=== PATIENT | male | born 1950 | race Caucasian/White ===

== ENCOUNTER → 2017-05-15 | Outpatient (CLI) | payer MEDICARE, BC ==
--- NOTE | 2017-05-15 15:56 | US ---
EXAMINATION TYPE: US kidneys/renal and bladder DATE OF EXAM: 05/15/2017 COMPARISON: NONE CLINICAL HISTORY: 66-year-old male CKD Stage III N183. Abnormal labs, no symptoms TECHNIQUE: Multiple sonographic images of the kidneys and bladder were obtained. FINDINGS: Right Kidney: 12.5 x 5.7 x 6.3 cm without hydronephrosis. There is a large, lobulated 8.4 cm cyst at the lower pole. Left Kidney: 11.3 x 5.1 x 7.2 cm with mild pelvicaliectasis. There is a 1.6 cm echogenic focus at the lower pole. Along the right anterior bladder wall, there is a 1.9 cm round hypoechoic area. The rubber tubing splicer indic ates that during real-time scanning, this was felt to relate to adjacent bowel and technical artifact . Only the right ureteral jet is seen during the course of the exam. Incidentally, there is echogenic appearance to the liver suggesting fatty infiltration. IMPRESSION: 1. Mild pelvicaliectasis on the left. The left ureteral jet is also not seen. Correlate for any sympt oms of renal colic to exclude ureteral obstruction. Follow-up can be considered. 2. Large 8.4 cm lobulated cyst from the right lower pole. 3. A 1.6 cm nonobstructive calculus in the left lower pole. 4. A 1.9 cm round hypoechoic area along the right anterior bladder wall felt to relate to artifact or adjacent bowel during real-time scanning. Recommend three-month follow-up ultrasound to reassess thi s area.
== END ==
LOC: RADUSWWP 13:35
PROVIDERS: ATTEND Family Medicine
DX: N20.0 Calculus of kidney (principal); N28.1 Cyst of kidney, acquired
CPT/HCPCS: 76770

== ENCOUNTER → 2017-06-06 | Outpatient (CLI) | payer MEDICARE, BC ==
--- NOTE | 2017-06-06 16:16 | XR ---
EXAMINATION TYPE: XR KUB DATE OF EXAM: 06/06/2017 CLINICAL DATA: 66-year-old male with pain, evaluate for stones, [facility] COMPARISON: None FINDINGS: Nonobstructive bowel gas pattern. Moderate stool. No suspicious calcifications seen. Prior plate and screw fixation along the right iliac bone with postsurgical and/or posttraumatic deformity anterior i liac wing. IMPRESSION: No radiographically apparent suspicious calcifications. Moderate stool.
== END | disposition home or self-care (01) ==
LOC: RADXRMAIN 15:15
PROVIDERS: ATTEND Urology
DX: N20.0 Calculus of kidney (principal)
CPT/HCPCS: 74000

== ENCOUNTER → 2017-08-02 | Outpatient (CLI) | payer MEDICARE, BC ==
[2017-08-02 09:23] LABS: Basophils % (A) 1 %; Eosinophils # (A) 0.2 k/uL (0-0.7); Eosinophils % (A) 3 %; HCT 42.2 % (39.0-53.0); HGB 14.1 gm/dL (13.0-17.5); Lymphocytes # (A) 1.2 k/uL (1.0-4.8); Lymphocytes % (A) 20 %; MCH 30.5 pg (25.0-35.0); MCHC 33.4 g/dL (31.0-37.0); MCV 91.4 fL (80.0-100.0); Mean Platelet Volume 6.8; Monocytes # (A) 0.3 k/uL (0-1.0); Monocytes % (A) 5 %; Neutrophils # (A) 4.1 k/uL (1.3-7.7); Neutrophils % (A) 70 %; Platelet Count 200 k/uL (150-450); RBC 4.61 m/uL (4.30-5.90); RDW 12.4 % (11.5-15.5); WBC 5.9 k/uL (3.8-10.6)
[2017-08-02 09:31] LABS: Appearance,Urine Clear (Clear); Bilirubin,Urine Negative (Negative); Blood,Urine Negative (Negative); Color,Urine Yellow; Glucose,Urine (UA) 1+ (Negative); Ketones,Urine Negative (Negative); Leukocyte Esterase,Urine Negative (Negative); Nitrite,Urine Negative (Negative); PH, Urine 5.5 (5.0-8.0); Protein,Urine Trace (Negative); Specific Gravity,Urine 1.015 (1.001-1.035); Urobilinogen,Urine <2.0 mg/dL (<2.0)
[2017-08-02 09:58] LABS: Albumin 4.3 g/dL (3.5-5.0); Total Bilirubin 0.4 mg/dL (0.2-1.3); Total Protein 7.5 g/dL (6.3-8.2)
== END | disposition home or self-care (01) ==
LOC: LABPAT 08:27
PROVIDERS: ATTEND Urology
DX: Z01.818 Encounter for other preprocedural examination (principal); Z01.812 Encounter for preprocedural laboratory examination; I10 Essential (primary) hypertension; N20.0 Calculus of kidney; R35.0 Frequency of micturition; R31.9 Hematuria, unspecified; E78.5 Hyperlipidemia, unspecified
CPT/HCPCS: 80053; 81003; 85025; 86850; 86900; 86901; 93005

== ENCOUNTER 2017-08-09 06:07 | Inpatient (IN) | payer MEDICARE, BC ==
[2017-08-02 23:00] VITALS: BMI 34.8
[~2017-08-09 06:07] MED LIST: ceFAZolin IN SWFI 2 GM/20 ML SYRINGE IVP ONE
[2017-08-09] MEDS ORDERED: ONDANSETRON 4 MG/2 ML VIAL IVP ONE (06:09)
[2017-08-09] MEDS ORDERED: DEXAMETHASONE SOD PHOSPHATE 10 MG/ML 1 ML VIAL IV ONE (06:09)
[2017-08-09] MEDS ORDERED: HYDROmorphone 0.5 MG/0.5 ML SYRINGE IVP PRN (06:09)
[2017-08-09] MEDS ORDERED: LACTATED RINGERS 1,000 ML IV SCH (06:09)
[2017-08-09 06:43] VITALS: RESP 16
[2017-08-09] MEDS ORDERED: LIDOCAINE 1% 20 ML VIAL (10MG/ML) FOR IV START INTRADERMA ONE (06:50)
[2017-08-09 07:02] LABS: Glucose,Whole Blood 124 mg/dL (75-99)
[2017-08-09] MEDS ORDERED: LIDOCAINE 1% INJ 10MG/ML (20 ML MDV) ONE (07:26)
[2017-08-09] MEDS ORDERED: ROCURONIUM BROMIDE 10 MG/ML 10 ML VIAL IV ONE (07:26)
[2017-08-09] MEDS ORDERED: HYDROmorphone (PF) 1 MG/ML ONE (07:26)
[2017-08-09] MEDS ORDERED: PROPOFOL 10 MG/ML 20 ML VIAL IV ONE (07:26)
[2017-08-09] MEDS ORDERED: MIDAZOLAM 2 MG/2 ML VIAL ONE (07:26)
[2017-08-09] MEDS ORDERED: NEOSTIGMINE 1 MG/ML 10 ML VIAL ONE (07:26)
[2017-08-09] MEDS ORDERED: GLYCOPYRROLATE 0.2 MG/ML 2 ML VIAL ONE (07:26)
[2017-08-09] MEDS ORDERED: SUCCINYLCHOLINE CHLORIDE VIAL 200 MG/10 ML VIAL IV ONE (07:26)
--- NOTE | 2017-08-09 07:32 | XR ---
EXAMINATION TYPE: XR KUB DATE OF EXAM: 08/09/2017 HISTORY: Pain Comparison: 06/06/[address] 07/03/2017 Single KUB is submitted for interpretation. Findings: Right renal calculi: None Visualized. Right ureteral calculi: None Visualized. Left renal calculi: Recently described left renal calculi on recent CT are not clearly visualized on this examination. Left ureteral calculi: None Visualized. Pelvic calcifications: None Visualized. Bowel gas pattern is unremarkable. No free air. No mass effects. Postoperative changes right hemipe lvis. IMPRESSION: 1. Recently described left renal calculi on recent CT are not clearly visualized on this examination.
[2017-08-09] MEDS ORDERED: SODIUM CHLORIDE 0.9% 1,000 ML BAG IRRIGATION ONE (08:09)
[2017-08-09] MEDS ORDERED: IOHEXOL 350 MG/ML (PER ML) 100ML BTL MISCELLANE ONE (08:09)
[2017-08-09] MEDS ORDERED: LACTATED RINGERS 1,000 ML IV ONE ×2 (08:32)
[2017-08-09] MEDS ORDERED: ACETAMINOPHEN TAB 325 MG TAB PO PRN (08:52)
[2017-08-09] MEDS ORDERED: ONDANSETRON 4 MG/2 ML VIAL IVP PRN (08:52)
[2017-08-09] MEDS ORDERED: MAG HYDROX/AL HYDROX/SIMETH 30 ML CUP PO PRN (08:52)
--- NOTE | 2017-08-09 09:02 | P.OP ---
Date of Procedure: 08/09/17 Preoperative Diagnosis: Left renal calculi Postoperative Diagnosis: Left renal calculi Procedure(s) Performed: Cystoscopy, placement of left ureteral occluding balloon catheter, percutaneous nephrostomy (Dr. Farris) percutaneous nephrostolithotomy (Dr. Carranza), placement of 10-Austrian J nephrostomy Anesthesia: SIM Surgeon: Mikey Carranza Estimated Blood Loss (ml): 50 Pathology: other (Stone) Condition: stable Disposition: PACU Indications for Procedure: The patient is a 66-year-old gentleman with a 1.5 cm UPJ stone and multiple 5-6 mm stones in the left lower pole calyx he comes for percutaneous nephrostolithotomy Description of Procedure: Patient is brought to the operating suite he is given a successful general endotracheal anesthesia on the transport gurney. The patient is placed in a frog position with a sterile prep and drape. Cystoscopy with a 22-Austrian sheath and Foroblique lenses performed. The urethra is normal. The prostate is not obstructing. The left ureteral orifice is identified and intubated with a 5-Austrian occluding balloon catheter. Occluding balloon is passed up into the proximal ureter. In the balloon is insufflated The patient's placed in prone position with care to airways and extremities. Dr. Farris of radiology after sterile prep and drape performed percutaneous access to a left middle pole calyx. I then dilate the tract to 30-Austrian and place a working sheath into the collecting system. All amount of blood clot is irrigated out of the system. Large stone in the renal pelvises identify grasp and removed. Multiple small fragments at the UPJ are also removed. I am able to look in the left lower pole calyx with the rigid scope and remove several small stones. I then pass the flexible nephroscope into each calyceal system. I irrigate any stones back into the renal pelvis. I once again pass the rigid scope and remove the remaining fragments. I look again throughout the collecting system with the flexible scope and see no remaining stones. A 10- Austrian J nephrostomy tube was placed over the working wire and its position is confirmed fluoroscopically. It is secured to the skin with 2-0 silk. The patient is awakened and returned recovery room good condition. Blood loss is less than 50 mL. He'll be placed in the hospital postoperatively.
[2017-08-09] MEDS ORDERED: NALOXONE 0.4 MG/ML 1 ML VIAL IV PRN (09:03)
[2017-08-09] MEDS ORDERED: HYDROmorphone PCA 5 MG/25 ML SYRINGE IV PRN (09:03)
[2017-08-09 09:26] LABS: Glucose,Whole Blood 141 mg/dL (75-99)
--- NOTE | 2017-08-09 09:43 | FL ---
EXAMINATION TYPE: FL Perc Nephrostomy New Access DATE OF EXAM: 08/09/2017 COMPARISON: CT 07/03/2017 HISTORY: Hydronephrosis, left renal calculus. PROCEDURE: Maximal barrier technique was utilized. The skin overlying the left kidney was localized using fluor oscopy and the overlying skin prepped and draped. Lidocaine used for local anesthesia. Skin roque wa s made with a scalpel. Access was gained under fluoroscopy, following placement of a ureteral occlus ion balloon by the referring clinician and instillation of air in the renal collecting system with a 21-gauge needle to the kidney. A suitable posterior calyx was chosen. A 0.018 inch wire was advanc ed. The access site was dilated and subsequently a sheath was advanced into the renal pelvis followi ng dilation with balloon along the tract. Urine returned in the hub of the catheter. The patient unde rwent nephrolithotomy by the referring clinician. The patient remained in stable condition without complication. The patient was discharged to observation. IMPRESSION: STATUS POST NEPHROSTOMY PLACEMENT FOR NEPHROLITHOTOMY WITH FLUOROSCOPIC GUIDANCE. THIS PROCEDURE PER FORMED BY THE UNDERSIGNED.
[2017-08-09] MEDS: LOSARTAN-HCTZ 50-12.5 MG 1 EACH TAB PO SCH (10:02)
[2017-08-09] MEDS: SODIUM CHLORIDE 0.45% 1,000 ML IV SCH (10:10)
[2017-08-09 11:21] LABS: Glucose,Whole Blood 157 mg/dL (75-99)
[2017-08-09] MEDS ORDERED: HYDROcodone/APAP 7.5-325MG 1 EACH TAB PO PRN (13:35)
[2017-08-09] MEDS: metFORMIN 500 MG TAB PO SCH (14:42)
[2017-08-09] MEDS: CEPHALEXIN 500 MG CAP PO SCH ×2 (14:43→21:50)
[2017-08-09 16:45] LABS: Glucose,Whole Blood 152 mg/dL (75-99)
[2017-08-09] MEDS ORDERED: metFORMIN 500 MG TAB PO SCH (17:30)
[2017-08-09] MEDS: INSULIN ASPART 100 UNIT/ML 1 ML 10 ML VIAL SQ SCH ×2 (18:01→21:49)
[2017-08-09 20:11] LABS: Glucose,Whole Blood 186 mg/dL (75-99)
[2017-08-09] MEDS ORDERED: TAMSULOSIN 0.4 MG CAP.ER.24H PO SCH (21:00)
[2017-08-10 02:30] VITALS: BP 95/47; PULSE 80; TEMP 98.3
[2017-08-10] MEDS: SODIUM CHLORIDE 0.45% 1,000 ML IV SCH ×2 (04:39→09:48)
--- NOTE | 2017-08-10 06:39 | P.DS ---
Providers Date of admission: 08/09/17 06:07 Attending physician: Mikey Carranza Primary care physician: [place] [facility] Course: The patient is a 66-year-old gentleman with a large volume of left renal stones. He underwent a percutaneous nephrostolithotomy 08/09/2016. The stones removed successfully. He did well overnight. His pain is minimal. His catheter is removed. He tolerated fluids. The voided urine is clear and nephrostomy urine is pink up. He'll be discharged home today care of his family regular diet. He resume his medications. He's been given a prescription of Phillips. He'll follow-up in the office next week for nephrostomy tube removal. Patient Condition at Discharge: Good Plan - Discharge Summary Discharge Rx Participant: Yes New Discharge Prescriptions: New HYDROcodone/APAP 5-325MG [Phillips 5-325] 1 tab PO Q4HR PRN #20 tab PRN Reason: Pain Control No Action metFORMIN HCL [Glucophage] 500 mg PO QAM metFORMIN HCL 1,000 mg PO AC-SUPPER Losartan/Hydrochlorothiazide [Losartan-Hctz 100-25 mg Tab] 1 tab PO QAM Tamsulosin [Flomax] 0.4 mg PO HS Naproxen Sodium [Aleve] 220 mg PO BID Discharge Medication List metFORMIN HCL 1,000 mg PO AC-SUPPER 03/20/15 [History] metFORMIN HCL [Glucophage] 500 mg PO QAM 03/20/15 [History] Losartan/Hydrochlorothiazide [Losartan-Hctz 100-25 mg Tab] 1 tab PO QAM [History] Naproxen Sodium [Aleve] 220 mg PO BID 08/01/17 [History] Tamsulosin [Flomax] 0.4 mg PO HS 08/01/17 [History] HYDROcodone/APAP 5-325MG [Phillips 5-325] 1 tab PO Q4HR PRN #20 tab 08/10/17 [Rx] Follow up Appointment(s)/Referral(s): Mikey Carranza MD [STAFF PHYSICIAN] - 08/14/17 Activity/Diet/Wound Care/Special Instructions: Nephrostomy tube. Resume home medication. May shower if he covers dressing with plastic wrap or changes dressing. Discharge Disposition: HOME SELF-CARE
[2017-08-10 07:29] LABS: Glucose,Whole Blood 130 mg/dL (75-99)
[2017-08-10] MEDS: CEPHALEXIN 500 MG CAP PO SCH (08:10)
[2017-08-10] MEDS: LOSARTAN-HCTZ 50-12.5 MG 1 EACH TAB PO SCH (08:10)
[2017-08-10] MEDS: INSULIN ASPART 100 UNIT/ML 1 ML 10 ML VIAL SQ SCH (08:10)
[2017-08-10] MEDS: metFORMIN 500 MG TAB PO SCH (08:11)
[2017-08-10 15:57] LABS: Hemoglobin A1C 6.2 % (4.0-6.0)
== END 2017-08-10 11:08 | disposition home or self-care (01) | DRG 661 ==
LOC: 2ORMAIN 06:07 → 3SUR 08:47
PROVIDERS: ADMIT Urology; ATTEND Urology
PROC: 0T9130Z Drainage of Left Kidney with Drainage Device, Percutaneous Approach (ICD-10-PCS; 2017-08-09)
PROC: 0TC43ZZ Extirpation of Matter from Left Kidney Pelvis, Percutaneous Approach (ICD-10-PCS; principal; 2017-08-09 07:30)
PROC: 0T778DZ Dilation of Left Ureter with Intraluminal Device, Via Natural or Artificial Opening Endoscopic (ICD-10-PCS; principal; 2017-08-09 07:30)
DX: N20.2 Calculus of kidney with calculus of ureter (principal); E11.22 Type 2 diabetes mellitus with diabetic chronic kidney disease; N18.3 Chronic kidney disease, stage 3 (moderate); E78.5 Hyperlipidemia, unspecified; Z79.84 Long term (current) use of oral hypoglycemic drugs; Z79.899 Other long term (current) drug therapy; I12.9 Hypertensive chronic kidney disease with stage 1 through stage 4 chronic kidney disease, or unspecified chronic kidney disease; E55.9 Vitamin D deficiency, unspecified; N40.0 Benign prostatic hyperplasia without lower urinary tract symptoms
CPT/HCPCS: 50432; 74018; 82365; 83036; 84132; 86850; 86900; 86901

== ENCOUNTER → 2018-03-13 | Outpatient (CLI) | payer MEDICARE, BC ==
--- NOTE | 2018-03-13 10:11 | XR ---
EXAMINATION TYPE: XR KUB DATE OF EXAM: 03/13/2018 HISTORY: Pain Comparison: 08/09/2017 Single KUB is submitted for interpretation. Findings: Right renal calculi: None Visualized. Right ureteral calculi: None Visualized. Left renal calculi: None Visualized. Left ureteral calculi: None Visualized. Pelvic calcifications: None Visualized. Bowel gas pattern is unremarkable. No free air. No mass effects. IMPRESSION: 1. No distinct calculus identified at this time.
== END | disposition home or self-care (01) ==
LOC: RADXRMAIN 09:26
PROVIDERS: ATTEND Urology
DX: N20.0 Calculus of kidney (principal)
CPT/HCPCS: 74018

== ENCOUNTER → 2019-03-06 | Outpatient (CLI) | payer MEDICARE, BC ==
--- NOTE | 2019-03-06 15:44 | XR ---
EXAMINATION TYPE: XR knee complete RT DATE OF EXAM: 03/06/2019 CLINICAL HISTORY: Intermittent increasing right knee pain. TECHNIQUE: Three views of the right knee are obtained. COMPARISON: None. FINDINGS: There is no acute fracture/dislocation evident in right knee. The tri-compartment joint s paces appear aligned however small marginal osteophytes are seen in the lateral compartment and walton lofemoral compartment with mild patellofemoral compartment joint space narrowing. Tibial plateau scle rosis is seen of the medial and lateral compartments. Small suprapatellar joint effusion is incidenta lly seen. The overlying soft tissue appears unremarkable. IMPRESSION: 1. No acute fracture or dislocation in the right knee. 2. Mild tricompartmental arthropathy and mild suprapatellar joint effusion.
== END | disposition home or self-care (01) ==
LOC: RADXRYALE 11:32
PROVIDERS: ATTEND Physician Assistant Medical
DX: M17.11 Unilateral primary osteoarthritis, right knee (principal)

== ENCOUNTER → 2019-04-24 | Outpatient (CLI) | payer MEDICARE, BC ==
[2019-04-24 11:25] LABS: Potassium 4.6 mmol/L (3.5-5.1)
[2019-04-24 11:41] LABS: HGB 13.8 gm/dL (13.0-17.5); MCH 30.2 pg (25.0-35.0); MCHC 33.6 g/dL (31.0-37.0); MCV 90.1 fL (80.0-100.0); Mean Platelet Volume 7.4; Platelet Count 230 k/uL (150-450); RBC 4.55 m/uL (4.30-5.90); RDW 13.4 % (11.5-15.5); WBC 8.2 k/uL (3.8-10.6)
== END | disposition home or self-care (01) ==
LOC: LABPAT 10:08
PROVIDERS: ATTEND Internal Medicine Interventional Cardiology
DX: Z01.812 Encounter for preprocedural laboratory examination (principal); I42.8 Other cardiomyopathies
CPT/HCPCS: 80051; 82565; 84520; 85027

== ENCOUNTER 2019-05-01 09:42 | Day surgery (SDC) | payer MEDICARE, BC ==
[2019-04-29 14:07] VITALS: BMI 32.9
[~2019-05-01 09:42] MED LIST changes: +ALPRAZolam 0.25 MG TAB PO PRN; +ALPRAZolam 0.5 MG TAB PO PRN; +ASPIRIN 325 MG TAB PO STA; +ATORVASTATIN 80 MG TAB PO STA; +NITROGLYCERIN SL TABS 0.4 MG TAB SUBLINGUAL PRN; -ceFAZolin IN SWFI 2 GM/20 ML SYRINGE IVP ONE
[2019-05-01] MEDS ORDERED: SODIUM CHLORIDE 0.9% 1,000 ML in EMPTY BAG 1 BAG IV ONE (10:00)
[2019-05-01 10:17] VITALS: RESP 16; TEMP 97.7
[2019-05-01 10:25] LABS: Glucose,Whole Blood 112 mg/dL (75-99)
[2019-05-01] MEDS ORDERED: SODIUM CHLORIDE 0.9% 1,000 ML IV ONE (12:30)
[2019-05-01] MEDS ORDERED: fentaNYL (PF) 50 MCG/ML 2 ML AMP IV ONE (12:51)
[2019-05-01] MEDS ORDERED: LIDOCAINE 1% INJ 10MG/ML (20 ML MDV) SQ ONE (12:53)
[2019-05-01] MEDS ORDERED: VERAPAMIL SYRINGE (5 MG/10 ML) INTRAARTER ONE (12:56)
[2019-05-01] MEDS ORDERED: HEPARIN SODIUM 1,000 UN/ML (10ML VL) IV ONE (13:04)
[2019-05-01] MEDS ORDERED: IOPAMIDOL-370 125ML BTL INJ ONE (13:08)
[2019-05-01] MEDS ORDERED: RX INFO: IV CONTRAST WAS GIVEN 1 EACH MISC MISCELLANE PRN (13:28)
[2019-05-01] MEDS ORDERED: SODIUM CHLORIDE 0.9% 1,000 ML IV SCH (13:30)
[2019-05-01 16:55] VITALS: BP 101/72
[2019-05-01 18:14] VITALS: PULSE 72
--- NOTE | 2019-05-01 20:56 | CC ---
CARDIAC CATHETERIZATION REPORT Mr. Vasquez is a 68-year-old male who is followed by Dr. Bañuelos. He was found to have evidence of cardiomyopathy of unclear etiology. The patient has a history of diabetes, hyperlipidemia and hypertension. Because of his history and his presentation, recommendation was made regarding cardiac catheterization. The procedure, its risks and complications were discussed with the patient, who was in full understanding and agreement. PROCEDURE DESCRIPTION: Patient was brought to the curb and gutter laborer in a fasting, semi-sedated state after receiving fentanyl and Benadryl and achieving a moderate conscious sedated state. Using Xylocaine anesthesia and Seldinger technique, a 6-Bruneian sheath was introduced in the right radial artery. Selective right and left coronary angiography was performed using 5-Bruneian 3-1/2 bend right and left Dustin catheters. Multiple views were taken of the coronary arteries, including hemiaxial views. Following that, a 5-Bruneian tight pigtail catheter was introduced into the left ventricle and pressures were calculated. Following that, catheter and sheaths were removed. Hemostasis was obtained with deployment of a TR band. There was no immediate complication. Patient was returned to his room in stable condition. Of note, the patient received 5000 units of intravenous heparin as well as intra-arterial verapamil. There was no immediate complication. FINDINGS: FLUOROSCOPY: There is calcification involving all the coronary arteries. LEFT MAIN: This is a short-sized vessel bifurcating into left circumflex and left anterior descending artery. Left main coronary artery has no evidence of high-grade stenosis. LEFT ANTERIOR DESCENDING ARTERY: This is a large-sized vessel reaching toward the apex with a wrap around the apex segment giving rise to a large proximal diagonal branch. After the takeoff of the diagonal branch there is a 20% to 30% plaque without any evidence of high-grade stenosis. LEFT CIRCUMFLEX: This is a nondominant, moderate-sized vessel giving rise to 2 obtuse marginal branches. The takeoff of the left circumflex has 30% to 40% plaque. The rest of the vessel has no high-grade stenosis. RIGHT CORONARY ARTERY: This is a large dominant vessel bifurcating distally into PDA and posterolateral segment and branches. The right coronary artery is tortuous and in the mid segment has a 30% to 40% plaque. The rest of the vessel has no high-grade stenosis. LEFT VENTRICULOGRAM: Left ventriculogram was not performed. HEMODYNAMICS: There was no gradient across the aortic valve. The left ventricular end- diastolic pressure was 32 to 36 mmHg. CONCLUSION: 1. Mild triple-vessel coronary artery disease with calcified coronary arteries. 2. Elevated left ventricular end-diastolic pressure. RECOMMENDATIONS: At this time I see no evidence to suggest significant obstructive disease. His cardiomyopathy appears to be nonischemic cardiomyopathy. Will continue present therapy and, depending on his progress, further recommendations will be made. Those findings and recommendations were discussed with the patient, and he is in full understanding and agreement. DURATION OF PROCEDURE: 19 minutes. MMODL / IJN: [id number] /
[2019-05-01] MEDS ORDERED: CARVEDILOL 3.125 MG TAB PO SCH (21:00)
[2019-05-01] MEDS ORDERED: NON FORMULARY DRUG (Losartan/Hydrochlorothiazide [Losartan-Hctz 100-25 Mg Tab] 1 TAB) PO SCH (21:00)
[2019-05-02] MEDS ORDERED: ALLOPURINOL 100 MG TAB PO SCH (09:00)
[2019-05-02] MEDS ORDERED: ATORVASTATIN 40 MG TAB PO SCH (09:00)
[2019-05-02] MEDS ORDERED: ASPIRIN 81 MG PO SCH (09:00)
== END 2019-05-01 17:45 | disposition home or self-care (01) ==
LOC: CATHCVL 09:42
PROVIDERS: ATTEND Internal Medicine Interventional Cardiology
DX: I25.10 Atherosclerotic heart disease of native coronary artery without angina pectoris (principal); I77.1 Stricture of artery; I12.9 Hypertensive chronic kidney disease with stage 1 through stage 4 chronic kidney disease, or unspecified chronic kidney disease; E11.22 Type 2 diabetes mellitus with diabetic chronic kidney disease; N18.9 Chronic kidney disease, unspecified; Z79.84 Long term (current) use of oral hypoglycemic drugs; E78.5 Hyperlipidemia, unspecified; E78.00 Pure hypercholesterolemia, unspecified; I47.2 Ventricular tachycardia; I47.1 Supraventricular tachycardia; Z87.442 Personal history of urinary calculi; Z79.899 Other long term (current) drug therapy
CPT/HCPCS: 93458; J2001; J3010; J1644; Q9967

== ENCOUNTER → 2019-09-24 | Outpatient (CLI) | payer MEDICARE, BC ==
--- NOTE | 2019-09-24 14:32 | XR ---
EXAMINATION TYPE: XR chest 2V DATE OF EXAM: 09/24/2019 COMPARISON: 07/12/2011 HISTORY: Increasing shortness of breath for one month TECHNIQUE: Frontal and lateral views of the chest are obtained. FINDINGS: There is no focal air space opacity, pleural effusion, or pneumothorax seen. Linear left basilar retrocardiac atelectasis on the lateral view only. The cardiac silhouette size is enlarged. The osseous structures are intact. IMPRESSION: Linear left basilar subsegmental atelectasis and enlarged cardiomediastinal silhouette.
== END | disposition home or self-care (01) ==
LOC: RADXRYALE 14:02
PROVIDERS: ATTEND Physician Assistant Medical
DX: J98.11 Atelectasis (principal); J98.59 Other diseases of mediastinum, not elsewhere classified
CPT/HCPCS: 71046

== ENCOUNTER → 2019-10-09 | Outpatient (CLI) | payer MEDICARE, BC ==
--- NOTE | 2019-10-09 10:54 | XR ---
EXAMINATION TYPE: XR chest 2V DATE OF EXAM: 10/09/2019 COMPARISON: 09/24/2019 HISTORY: Cough and shortness of breath TECHNIQUE: Frontal and lateral views of the chest are obtained. FINDINGS: There is no focal air space opacity, pleural effusion, or pneumothorax seen. Subtle questi onable nodular density at the right costophrenic angle on the frontal view only. The cardiac silhouet te size is enlarged. The osseous structures are intact. IMPRESSION: 1. Enlarged cardiomediastinal silhouette as seen on the prior. 2. Questionable nodular density at the right costophrenic angle. CT thorax could be performed for fur ther evaluation.
== END | disposition home or self-care (01) ==
LOC: RADXRYALE 10:00
PROVIDERS: ATTEND Physician Assistant Medical
DX: R06.02 Shortness of breath (principal)
CPT/HCPCS: 71046

== ENCOUNTER 2019-11-21 07:53 | Day surgery (SDC) | payer MEDICARE, BC ==
[2019-11-20 14:21] VITALS: BMI 32.8
[~2019-11-21 07:53] MED LIST changes: -ALPRAZolam 0.25 MG TAB PO PRN; -ALPRAZolam 0.5 MG TAB PO PRN; -ASPIRIN 325 MG TAB PO STA; -ATORVASTATIN 80 MG TAB PO STA; +LACTATED RINGERS 1,000 ML IV SCH; -NITROGLYCERIN SL TABS 0.4 MG TAB SUBLINGUAL PRN; +SODIUM CHLORIDE 0.9% 1,000 ML IV SCH; +ceFAZolin 1,000 MG in SODIUM CHLORIDE 0.9% IRRIGATIO 250 ML IRRIGATION ONE
[2019-11-21 08:27] LABS: Glucose,Whole Blood 115 mg/dL (75-99)
[2019-11-21 08:36] LABS: Basophils # (A) 0.1 k/uL (0-0.2); Basophils % (A) 1 %; Eosinophils # (A) 0.2 k/uL (0-0.7); Eosinophils % (A) 3 %; HCT 42.3 % (39.0-53.0); HGB 13.7 gm/dL (13.0-17.5); Lymphocytes # (A) 0.9 k/uL (1.0-4.8); Lymphocytes % (A) 13 %; MCHC 32.3 g/dL (31.0-37.0); MCV 89.9 fL (80.0-100.0); Mean Platelet Volume 8.4; Monocytes # (A) 0.5 k/uL (0-1.0); Monocytes % (A) 7 %; Neutrophils # (A) 5.2 k/uL (1.3-7.7); Neutrophils % (A) 77 %; Platelet Count 194 k/uL (150-450); RBC 4.71 m/uL (4.30-5.90); RDW 13.8 % (11.5-15.5); WBC 6.8 k/uL (3.8-10.6)
[2019-11-21 08:42] VITALS: RESP 16; TEMP 97.5
[2019-11-21 08:45] LABS: Calcium 9.4 mg/dL (8.4-10.2); Total Bilirubin 1.2 mg/dL (0.2-1.3)
[2019-11-21 08:53] LABS: Albumin 4.4 g/dL (3.5-5.0); Potassium 5.9 mmol/L (3.5-5.1); Total Protein 7.9 g/dL (6.3-8.2)
[2019-11-21] MEDS ORDERED: MIDAZOLAM 2 MG/2 ML VIAL ONE (09:13)
[2019-11-21] MEDS ORDERED: ALFENTANIL 500 MCG/ML 2 ML AMP IV ONE (09:13)
[2019-11-21] MEDS ORDERED: IV FLUID CONTINUATION 900 ML IV ONE (09:15)
[2019-11-21] MEDS ORDERED: LIDOCAINE 1% INJ 10MG/ML (20 ML MDV) ONE ×2 (09:38)
[2019-11-21] MEDS ORDERED: LIDOCAINE 1% INJ 10MG/ML (20 ML MDV) SQ ONE ×2 (09:56→10:08)
[2019-11-21] MEDS ORDERED: ACETAMINOPHEN TAB 325 MG TAB PO PRN (10:57)
[2019-11-21] MEDS ORDERED: ACETAMINOPHEN IV (For NPO) 1,000 MG in EMPTY BAG 1 BAG IVPB ONE (10:57)
[2019-11-21 11:17] LABS: Glucose,Whole Blood 134 mg/dL (75-99)
--- NOTE | 2019-11-21 11:48 | P.DS ---
Providers Attending physician: Brant Bañuelos Primary care physician: [facility] Course: Patient underwent single-chamber ICD implantation for severe nonischemic cardiomyopathy with severe heart failure, chronic and systolic despite appropriate medical treatment. He is frequent fast runs of nonsustained ventricular tachycardia. He's had 100 runs of nonsustained ventricular tachycardia in a 24-hour Holter monitor recently. He also isn't enlarged RV Single chamber ICD was implanted [employer] successfully DFT testing was deferred at this point Plan continue cardiac medications continue heart failure medications Prescribed IVABRADINE for heart failure management Discharge home after IV antibodies and chest x-ray today follow-up in the office within 7 days Plan - Discharge Summary Discharge Rx Participant: No New Discharge Prescriptions: Continue metFORMIN HCL [Glucophage] 500 mg PO QAM Carvedilol [Coreg] 3.125 mg PO BID Atorvastatin [Lipitor] 40 mg PO HS Allopurinol [Zyloprim] 100 mg PO DAILY PRN PRN Reason: gout metFORMIN HCL [Glucophage] 1,000 mg PO HS Losartan [Cozaar] 50 mg PO DAILY Furosemide [Lasix] 20 mg PO DAILY@1200 Spironolactone 12.5 mg PO BID Discharge Medication List metFORMIN HCL [Glucophage] 500 mg PO QAM 03/20/15 [History] Allopurinol [Zyloprim] 100 mg PO DAILY PRN 04/29/19 [History] Atorvastatin [Lipitor] 40 mg PO HS 04/29/19 [History] Carvedilol [Coreg] 3.125 mg PO BID 04/29/19 [History] Furosemide [Lasix] 20 mg PO DAILY@1200 11/20/19 [History] Losartan [Cozaar] 50 mg PO DAILY 11/20/19 [History] Spironolactone 12.5 mg PO BID 11/20/19 [History] metFORMIN HCL [Glucophage] 1,000 mg PO HS 11/20/19 [History] Follow up Appointment(s)/Referral(s): Brant Bañuelos MD [STAFF PHYSICIAN] - 1 Week (Device follow-up within one week Follow-up with Dr. Bañuelos in 3 months [id number] visit) Activity/Diet/Wound Care/Special Instructions: PATIENT EDUCATION MATERIAL Instructions following a heart rhythm device implant. 1. Keep dressing DRY for 5 DAYS. You may cover the area with Saran or Cling Wrap, prior to a shower. 2. The dressing will be removed in the Device Clinic at [facility]. Absorbable sutures were used to close the wound. 3. Avoid raising the left arm above the shoulder level. 4 week restriction 4. Avoid arm movements, like backscratching, rubbing the head, or pulling on a cord. 4 weeks restriction 5. Gentle range of motion movements of the shoulder, closest to the incision should be performed to avoid a frozen shoulder. (Pendulum exercises of the shoulder) 6. The opposite arm may be used freely. 7. Avoid driving for 7 days. 8. Avoid activities such as golfing, swimming, weed whacking, lifting more than 10 pounds weight, bowling, gymnastics and weight training/lifting. (6 weeks restriction) 9. Activities such as wood chopping with an axe, pull-ups in the gymnasium, power lifting, arc-welding, being close to home induction cooktops will always be a problem. 10. Arm sling is only a reminder not to raise the arm above the head. You do not need to keep the arm completely immobilized. Your free to move the arm and use it and for normal activities. In case of any problems, please call [facility], Xuan Gonzalez, @ [phone], Attention: Device Clinic Device clinic follow-up in 5 days Follow-up with primary youth officer Dr. Bañuelos in 2-3 months No change in medications Same day discharge Chest x-ray at 1 PM Antibiotics at 3 PM If stable discharge home thereafter
--- NOTE | 2019-11-21 11:54 | P.PRLE ---
RE: Javier Garcia Dear Dr. Adkins Mr. Vasquez underwent single-chamber ICD implantation for severe nonischemic cardiomyopathy with class III heart failure symptoms and very frequent runs of fast nonsustained ventricular tachycardia I have deferred DFT testing at this time and have ordered IVABRADINE since he is already on maximally tolerated medications I would like to see his heart rates well below 70 bpm for improvement as in heart failure status ICD testing and anesthesia will be performed at a later date in about 3-4 months after the code situation has improved Thank you for entrusting me with the care of the patient Warm regards Sincerely Brant Bañuelos
--- NOTE | 2019-11-21 12:27 | PCN ---
PROCEDURE NOTE Mr. Garcia is a 69-year-old male patient who has severe nonischemic cardiomyopathy with nonobstructive CAD, very frequent runs of nonsustained ventricular tachycardia. His left ventricular ejection fraction has not improved despite maximally tolerated medications and heart failure medications. He also has very frequent runs of nonsustained ventricular tachycardia on his Holter monitor. This is fast ventricular tachycardia. Therefore, he was brought in for a single-chamber ICD implantation for primary prevention of sudden cardiac given his heart failure status, severity of cardiomyopathy and very frequent runs of fast and SVT on Holter monitor. Patient was brought to the EP lab in a fasting state. Written informed consent was obtained prior to the procedure. The left shoulder area was prepped and draped as per protocol; 1% lidocaine was used for local anesthesia. A 4 cm incision was made parallel to the deltopectoral groove, about 1.5 cm medial to it. The incision was carried down to the level of the pectoralis muscle. A subfascial pocket was made. Hemostasis was assured. The left axillary vein was accessed at a single point and very laterally in the in extrathoracic axillary vein and via an appropriately-sized introducer sheath, a [employer] lead technical architect was positioned in the RV apex towards the septum and screwed in. This was Optisure model # LDA 210 Q, 65 cm in length and serial #[id number]. R-waves 11.8 mV, pacing impedance 630 ohms, pacing threshold 0.2 V at 0.8 milliseconds. High-voltage impedance 61 ohms. The leads secured to the underlying pectoralis fascia using 2 nonabsorbable sutures. Pocket was irrigated with antibiotic solution. Leads were connected to the generator (ZuzuChe VR model CD 1357-40 Q and serial #[id number]. The lead and generator were then placed in subfascial pocket and the wound was closed in 3 layers and dressed per protocol. RESULTS: Successful single-chamber ICD implantation for primary prevention of sudden cardiac in this gentleman with severe nonischemic cardiomyopathy and severe heart failure and very fast runs of nonsustained ventricular tachycardia, very frequent, despite maximally tolerated medications. PLAN: 1. Start . 2. Monitor heart rates and get heart rates below 70 beats per minute with appropriate dosing. 3. Defer DFT testing until heart failure status improves in about 3 to 4 months. MMODL / IJN: [id number] /
[2019-11-21 13:02] VITALS: BP 96/57; PULSE 73
--- NOTE | 2019-11-21 13:54 | XR ---
EXAMINATION TYPE: XR chest 1V portable DATE OF EXAM: 11/21/2019 Comparison: 10/09/2019 Clinical History: 69-year-old male Lead placement check Findings: Left anterior chest wall ICD generator with right ventricular lead. Heart remains mildly enlarged. Mi ld interstitial prominence is unchanged. No consolidation or pleural effusion. Impression: 1. Left anterior chest wall pacemaker generator with single right ventricular lead. 2. Stable cardiomegaly. Chronic changes without definite acute process.
[2019-11-21 23:16] LABS: Hemoglobin A1C 6.6 % (4.0-6.0)
== END 2019-11-21 15:30 | disposition home or self-care (01) ==
LOC: CATHEP 07:53
PROVIDERS: ATTEND Internal Medicine Clinical Cardiac Electrophysiology
DX: I47.2 Ventricular tachycardia (principal); I42.9 Cardiomyopathy, unspecified; I13.0 Hypertensive heart and chronic kidney disease with heart failure and stage 1 through stage 4 chronic kidney disease, or unspecified chronic kidney disease; I50.22 Chronic systolic (congestive) heart failure; I25.10 Atherosclerotic heart disease of native coronary artery without angina pectoris; N18.3 Chronic kidney disease, stage 3 (moderate); E11.9 Type 2 diabetes mellitus without complications; E78.5 Hyperlipidemia, unspecified; Z79.02 Long term (current) use of antithrombotics/antiplatelets; Z79.84 Long term (current) use of oral hypoglycemic drugs; Z79.899 Other long term (current) drug therapy; Z87.442 Personal history of urinary calculi; Z87.891 Personal history of nicotine dependence
CPT/HCPCS: 80053; 84443; 85025; 83036; 71045; 33249; J2250; J0690 ×2; J2001; J0131

== ENCOUNTER → 2020-01-30 | Outpatient (CLI) | payer MEDICARE, BC ==
--- NOTE | 2020-01-30 09:59 | XR ---
EXAMINATION TYPE: PA chest with right rib series, 5 views DATE OF EXAM: 01/30/2020 COMPARISON: 11/21/2019 HISTORY: 69-year-old male for chest pain, fall this morning and right mid lateral rib pain. FINDINGS: Left anterior chest wall AICD generator with right ventricular lead. Heart remains mildly enlarged. T here is new right basilar opacity. Pulmonary vasculature within normal limits. No displaced right rib fracture seen. IMPRESSION: 1. New airspace disease at the right base along with a small right effusion. Correlate for possible p neumonia. Follow-up after treatment to ensure clearance. 2. No displaced right rib fracture seen.
== END | disposition home or self-care (01) ==
LOC: RADXRYALE 08:55
PROVIDERS: ATTEND Physician Assistant Medical
DX: J98.4 Other disorders of lung (principal)

== ENCOUNTER → 2020-03-09 | Outpatient (CLI) | payer MEDICARE, BC ==
--- NOTE | 2020-03-09 13:34 | XR ---
EXAMINATION TYPE: XR chest 2V DATE OF EXAM: 03/09/2020 COMPARISON: Chest x-ray January 30, 2020 HISTORY: Shortness of breath and fatigue. TECHNIQUE: Frontal and lateral views of the chest are obtained. FINDINGS: There is cardiomegaly with single lead pacemaker/AICD. Persistent right greater than left bibasilar opacities. Upper lungs clear without pneumothorax. The osseous structures are intact. IMPRESSION: Cardiomegaly with small to moderate size right pleural effusion and right greater than l eft bibasilar acute infiltrate and/or atelectasis redemonstrated. No significant change from most rec ent x-ray.
== END | disposition home or self-care (01) ==
LOC: RADXRYALE 13:15
PROVIDERS: ATTEND Physician Assistant Medical
DX: J90 Pleural effusion, not elsewhere classified (principal); I51.7 Cardiomegaly; R91.8 Other nonspecific abnormal finding of lung field; R06.02 Shortness of breath
CPT/HCPCS: 71046

== ENCOUNTER → 2020-07-13 | Outpatient (CLI) | payer MEDICARE, BC ==
--- NOTE | 2020-07-13 15:25 | US ---
EXAMINATION TYPE: US kidneys/renal and bladder DATE OF EXAM: 07/13/2020 COMPARISON: US & CT 2017 CLINICAL HISTORY: N18.30 Chronic kidney disease stage 3. EXAM MEASUREMENTS: Right Kidney: 13.0 x 6.2 x 5.9 cm Left Kidney: 7.4 x 4.4 x 3.8 cm Right Kidney: Large lower pole exophytic cyst measures 8.8 x 5.6 x 8.4 cm. Upper pole soft tissue den sity versus normal tissue measures 3.8 x 3.0 x 3.1 cm, distorts contour. Left Kidney: atrophic Bladder: possible bladder diverticuli right upper side. Bilateral Jets seen: Yes There is no evidence for hydronephrosis at this point in time. No nephrolithiasis is seen. The urin bebe bladder is anechoic. Bilateral ureteral jets are seen. IMPRESSION: Large exophytic cyst lower pole right kidney. No distinct mass upper pole right kidney.
== END | disposition home or self-care (01) ==
LOC: RADUSWWP 14:45
PROVIDERS: ATTEND Internal Medicine Nephrology
DX: N28.1 Cyst of kidney, acquired (principal); N18.30 Chronic kidney disease, stage 3 unspecified
CPT/HCPCS: 76770

== ENCOUNTER 2020-12-07 09:49 | Day surgery (SDC) | payer MEDICARE, BC ==
[2020-12-03 13:49] VITALS: BMI 29.9
[~2020-12-07 09:49] MED LIST changes: -ceFAZolin 1,000 MG in SODIUM CHLORIDE 0.9% IRRIGATIO 250 ML IRRIGATION ONE
[2020-12-07 10:30] VITALS: RESP 16; TEMP 98.1
[2020-12-07] MEDS ORDERED: PROPOFOL 10 MG/ML 20 ML VIAL IV ONE (11:30)
[2020-12-07] MEDS ORDERED: LIDOCAINE 1% INJ 10MG/ML (20 ML MDV) ONE (11:30)
--- NOTE | 2020-12-07 12:19 | P.EPPROC ---
- EP Procedure Note Electrophysiology Procedure Note: Diagnosis Severe nonischemic cardio myopathy Single-chamber ICD, [employer] RV pacing threshold 0.5 V at 0.5 ms R waves 11.8 mV Pacing impedance 530 ohms HV 78 ohms Defibrillation level testing Ventricular fibrillation was induced and appropriately detected at least sensitivity In the cathodal vector, attention shock and a 20 J shock was unsuccessful External defibrillation had to be performed High-voltage impedance 79 ohms, total charge time 3.8 seconds Once the patient stabilized and blood pressure was in normal range VF was reinduced Appropriately detected at least sensitivity In the and burak configuration a 20 J shock was unsuccessful A 30 J shock was successfully defibrillated the patient High-voltage impedance 78 ohms Charge time 6.3 seconds Device reprogrammed An burak configuration First cardioversion 30 J First defibrillation 36 J Appropriate antitachycardia pacing cardioversion defibrillations programmed Impression High DFT consistent with advanced heart failure PLAN Continue maximally tolerated heart failure medications and patient instructed to continue to take ENTRESTO He has recently reduce the dose of ENTRESTO to once daily Continue atorvastatin, continue Toprol-XL, continue Lasix, continue spironolactone Continue ivabradine
[2020-12-07 15:53] VITALS: BP 95/57; PULSE 62
== END 2020-12-07 12:53 | disposition home or self-care (01) ==
LOC: CATHEP 09:49
PROVIDERS: ATTEND Internal Medicine Clinical Cardiac Electrophysiology
DX: I11.0 Hypertensive heart disease with heart failure (principal); I50.9 Heart failure, unspecified; I42.8 Other cardiomyopathies; E11.9 Type 2 diabetes mellitus without complications; N19 Unspecified kidney failure; Z95.810 Presence of automatic (implantable) cardiac defibrillator; Z20.822 Contact with and (suspected) exposure to COVID-19; Z79.899 Other long term (current) drug therapy
CPT/HCPCS: 93642; 87635; J2001; J2704

== ENCOUNTER 2022-05-06 06:21 | Day surgery (SDC) | payer MEDICARE, BC ==
[2022-05-05 12:48] VITALS: BMI 32.3
[~2022-05-06 06:21] MED LIST changes: +LIDOCAINE 1% (10MG/ML) FOR IV START INTRADERMA PRN; -SODIUM CHLORIDE 0.9% 1,000 ML IV SCH
[2022-05-06 07:18] VITALS: TEMP 97
[2022-05-06 07:19] LABS: Glucose,Whole Blood 122 mg/dL (70-110)
[2022-05-06] MEDS ORDERED: PROPOFOL 10 MG/ML 20 ML VIAL IV ONE (07:38)
--- NOTE | 2022-05-06 07:59 | P.PCN ---
Date of Procedure: 05/06/22 Procedure(s) Performed: BRIEF HISTORY: Patient is a 71-year-old pleasant white male scheduled for an elective colonoscopy as a part of screening for colorectal neoplasia. PROCEDURE PERFORMED: Colonoscopy. PREOPERATIVE DIAGNOSIS: Screening for colon cancer. IV sedation per Anesthesia. PROCEDURE: After informed consent was obtained, the patient, was brought into the endoscopy unit. IV sedation was administered by Anesthesia under continuous monitoring. Digital rectal examination was normal. Initially the Olympus CF-160 flexible video colonoscope was then inserted in the rectum, gradually advanced into the cecum without any difficulty. Careful examination was performed as the scope was gradually being withdrawn. Ileocecal valve and the appendiceal orifice were visualized and appeared normal. Prep was excellent. Mucosa of the cecum, ascending colon, transverse colon, descending colon, sigmoid colon, and rectum appeared normal. Scattered sigmoid diverticulosis. Retroflexion was performed in the rectum and small internal were seen. The patient tolerated the procedure well. IMPRESSION: Normal-appearing colon from rectum to cecum no evidence of colorectal neoplasia . Small internal hemorrhoids Scattered sigmoid diverticula RECOMMENDATIONS: Findings of this examination were discussed with the patient as well as his family. He was advised to have a repeat screening colonoscopy in 10 years..
[2022-05-06 08:56] VITALS: BP 112/66; PULSE 61; RESP 18
== END 2022-05-06 08:56 | disposition home or self-care (01) ==
LOC: ORWHC2ENDO 06:21
PROVIDERS: ATTEND Internal Medicine Gastroenterology
DX: Z12.11 Encounter for screening for malignant neoplasm of colon (principal); K64.8 Other hemorrhoids; K57.30 Diverticulosis of large intestine without perforation or abscess without bleeding; E78.5 Hyperlipidemia, unspecified; I42.9 Cardiomyopathy, unspecified; N20.0 Calculus of kidney; M10.9 Gout, unspecified; M19.90 Unspecified osteoarthritis, unspecified site; E11.9 Type 2 diabetes mellitus without complications; K21.9 Gastro-esophageal reflux disease without esophagitis; I10 Essential (primary) hypertension; Z79.899 Other long term (current) drug therapy; Z95.0 Presence of cardiac pacemaker; T75.3XXD Motion sickness, subsequent encounter
CPT/HCPCS: J2704; G0121

== ENCOUNTER → 2022-12-09 | Outpatient (CLI) | payer MEDICARE, BC ==
--- NOTE | 2022-12-09 12:13 | XR ---
EXAMINATION TYPE: XR knee complete RT DATE OF EXAM: 12/09/2022 12:06 PM INDICATION: Patient age:Male; 72 years old; Reason for study: [id number] RT KNEE PAIN; [facility]. COMPARISON: Right knee radiograph 03/06/2019 TECHNIQUE: The Right knee(s) was examined in 3 projections. Frontal, lateral and oblique. FINDINGS: No acute fracture or dislocation. Similar small marginal osteophytes are seen in the late ral compartment and patellofemoral compartment with mild patellofemoral compartment joint space narro wing. Tibial plateau sclerosis is again seen involving the medial lateral compartments. Small suprapa tellar joint effusion. No soft tissue edema. IMPRESSION: 1. No acute osseous pathology. 2. Mild tricompartmental osteoarthritic changes. 3. Small suprapatellar joint effusion.
== END | disposition home or self-care (01) ==
LOC: RADXRYALE 11:53
PROVIDERS: ATTEND Physician Assistant Medical
DX: M17.11 Unilateral primary osteoarthritis, right knee (principal); M25.461 Effusion, right knee

== ENCOUNTER 2023-05-23 09:31 | Day surgery (SDC) | payer MEDICARE, BC ==
[2023-05-19 13:08] VITALS: BMI 32.3
[~2023-05-23 09:31] MED LIST changes: -LIDOCAINE 1% (10MG/ML) FOR IV START INTRADERMA PRN; +SODIUM CHLORIDE 0.9% 1,000 ML IV SCH
[2023-05-23] MEDS ORDERED: SODIUM CHLORIDE 0.9% 500 ML 500 ML IV ONE (09:50)
[2023-05-23 09:57] VITALS: RESP 16; TEMP 98.5
[2023-05-23 10:05] LABS: Glucose,Whole Blood 139 mg/dL (70-110)
[2023-05-23 10:29] LABS: ALT 22 U/L (4-49); AST 29 U/L (17-59); African American GFR (CKD) 59 (>60 ml/min/1.73 sqM); Albumin 4.2 g/dL (3.5-5.0); Alkaline Phosphatase 66 U/L (38-126); Anion Gap 11 mmol/L; Blood Urea Nitrogen 20 mg/dL (9-20); Calcium 9.3 mg/dL (8.4-10.2); Carbon Dioxide 21 mmol/L (22-30); Chloride 106 mmol/L (98-107); Glucose 154 mg/dL (74-99); Non-African American GFR(CKD) 51 (>60 ml/min/1.73 sqM); Potassium 4.6 mmol/L (3.5-5.1); Sodium 138 mmol/L (137-145); Total Bilirubin 0.7 mg/dL (0.2-1.3); Total Protein 7.3 g/dL (6.3-8.2)
[2023-05-23] MEDS ORDERED: PROPOFOL 10 MG/ML 20 ML VIAL IV ONE (11:16)
--- NOTE | 2023-05-23 12:10 | P.EPPROC ---
- EP Procedure Note Electrophysiology Procedure Note: Diagnosis Severe cardio myopathy with high DFTs at 30 J Single-chamber ICD, [employer] VR Procedure Device interrogated. Battery life greater than 6 years Ventricular pacing threshold 0.5 V at 0.5 ms, R waves 11.8 mV and pacing impedance 480 ohms High-voltage impedance 73 ohms Defibrillation level testing at 25 J Anode polarity VF was induced, adequately and appropriately detected at least sensitivity Successfully internally defibrillated with a 25 J shock, anode No post shock noise Charge time 5.1 seconds, shocking impedance 73 ohms ICD was reprogrammed VT zone 176 beats a minute, VT 2 zone 214 beats a minute and VF zone 240 beats a minute Appropriate antitachycardia pacing cardioversion defibrillations programmed Impression Improvement in successful defibrillation energy level, down to 25 J Previously successful with 30 J Plan Continue ENTRESTO, atorvastatin, Lasix, Corlanor, metoprolol succinate and spironolactone
[2023-05-23 13:18] VITALS: BP 108/63; PULSE 68
== END 2023-05-23 12:51 | disposition home health service (06) ==
LOC: CATHEP 09:31
PROVIDERS: ATTEND Internal Medicine Clinical Cardiac Electrophysiology
DX: I42.9 Cardiomyopathy, unspecified (principal); E78.5 Hyperlipidemia, unspecified; I25.10 Atherosclerotic heart disease of native coronary artery without angina pectoris; I49.3 Ventricular premature depolarization; I11.0 Hypertensive heart disease with heart failure; I50.22 Chronic systolic (congestive) heart failure; E11.9 Type 2 diabetes mellitus without complications; K21.9 Gastro-esophageal reflux disease without esophagitis; Z79.899 Other long term (current) drug therapy
CPT/HCPCS: 80053; 93642

== ENCOUNTER → 2023-07-19 | Outpatient (CLI) | payer MEDICARE, BC ==
--- NOTE | 2023-07-19 13:07 | US ---
EXAMINATION TYPE: US kidneys/renal and bladder DATE OF EXAM: 07/19/2023 COMPARISON: NONE CLINICAL INDICATION: Male, 72 years old with history of N18.31 CHRONIC KIDNEY DISEASE, STAGE 3A; CKD EXAM MEASUREMENTS: Right Kidney: 11.1 x 5.8 x 6.1 cm Left Kidney: 7.4 x 3.8 x 3.1 cm Post Void Residual Volume: 6.0 mL Right Kidney: anechoic area lower pole = 8.8 x 8.3 x 9.32cm. possible vague lesion upper pole = 2.8 x 2.4 x 2.5cm, difficult to visualize compared to prior exam ?normal tissue Left Kidney: atrophic, thin renal cortex Bladder: appears wnl Bilateral Jets seen: no Normal Post Void Residual: yes *Prostate = 4.9cm There is no evidence for hydronephrosis at this point in time. No nephrolithiasis is seen. No chastity s are identified. The urinary bladder is anechoic. Bilateral ureteral jets are seen. IMPRESSION: Renal atrophic changes noted.
== END | disposition home or self-care (01) ==
LOC: RADUSWWP 11:55
PROVIDERS: ATTEND Internal Medicine Nephrology
DX: N18.31 Chronic kidney disease, stage 3a (principal); N26.1 Atrophy of kidney (terminal)
CPT/HCPCS: 76770

== ENCOUNTER → 2024-01-19 | Outpatient (CLI) | payer MEDICARE, BC ==
--- NOTE | 2024-01-19 11:23 | XR ---
EXAMINATION TYPE: XR chest 2V DATE OF EXAM: 01/19/2024 COMPARISON: 03/09/2020 INDICATION: Cough, dyspnea TECHNIQUE: Frontal and lateral views of the chest are obtained. FINDINGS: The heart size is normal. The pulmonary vasculature is normal. The lungs are clear. Pacemaker overlies left chest. IMPRESSION: 1. No acute pulmonary process.
== END | disposition home or self-care (01) ==
LOC: RADXRYALE 09:31
PROVIDERS: ATTEND Physician Assistant Medical
DX: R05.9 Cough, unspecified (principal)
CPT/HCPCS: 71046

== ENCOUNTER 2024-02-15 10:45 | Inpatient (IN) | payer MEDICARE, BC ==
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
[2024-02-15 12:16] LABS: Basophils % (A) 0 %; Eosinophils # (A) 0.1 k/uL (0-0.7); Eosinophils % (A) 1 %; HCT 49.2 % (39.0-53.0); HGB 15.5 gm/dL (13.0-17.5); Hypochromasia Slight; Lymphocytes # (A) 0.8 k/uL (1.0-4.8); Lymphocytes % (A) 11 %; MCH 30.3 pg (25.0-35.0); MCHC 31.5 g/dL (31.0-37.0); MCV 96.1 fL (80.0-100.0); Mean Platelet Volume 9.2; Monocytes # (A) 0.2 k/uL (0-1.0); Monocytes % (A) 3 %; Neutrophils % (A) 84 %; Platelet Count 154 k/uL (150-450); RBC 5.12 m/uL (4.30-5.90); RDW 14.6 % (11.5-15.5); WBC 7.2 k/uL (3.8-10.6)
[2024-02-15] MEDS ORDERED: NALOXONE 0.4 MG/ML 1 ML VIAL IV PRN (12:19)
[2024-02-15] MEDS: DEXTROSE 5% IN WATER 100 ML with AMIODARONE 300 MG IV ONE (12:19)
[2024-02-15 12:25] LABS: ALT 20 U/L (4-49); AST 28 U/L (17-59); African American GFR (CKD) 27 (>60 ml/min/1.73 sqM); Alkaline Phosphatase 68 U/L (38-126); Anion Gap 15 mmol/L; Blood Urea Nitrogen 50 mg/dL (9-20); Calcium 9.2 mg/dL (8.4-10.2); Carbon Dioxide 21 mmol/L (22-30); Chloride 103 mmol/L (98-107); Glucose 159 mg/dL (74-99); INR 1.1 (<1.2); Non-African American GFR(CKD) 23 (>60 ml/min/1.73 sqM); Partial Thromboplastin Time 24.5 sec (22.0-30.0); Potassium 3.8 mmol/L (3.5-5.1); Prothrombin Time 12.1 sec (10.0-12.5); Sodium 139 mmol/L (137-145); Total Bilirubin 1.3 mg/dL (0.2-1.3); Total Protein 6.4 g/dL (6.3-8.2)
--- NOTE | 2024-02-15 12:37 | XR ---
EXAMINATION TYPE: XR chest 1V DATE OF EXAM: 02/15/2024 COMPARISON: 01/19/2024 INDICATION: Dysrhythmia and chest pain short of breath TECHNIQUE: Single frontal view of the chest is obtained. FINDINGS: The heart size is enlarged. Pacemaker overlies left chest. The pulmonary vasculature is prominent. Mild bibasilar infiltrates are present. Correlate for atelectasis and pulmonary edema. IMPRESSION: 1. Mild bibasilar infiltrates. Correlate for atelectasis or atypical pulmonary edema. 2. Cardiomegaly with prominent pulmonary vascular markings.
[2024-02-15] MEDS: AMIODARONE 360 MG in DEXTROSE 5% IN WATER 200 ML IV ONE (15:21)
--- NOTE | 2024-02-15 18:20 | P.EPPROC ---
- EP Procedure Note Electrophysiology Procedure Note: Diagnosis Nonischemic cardiomyopathy, frequent PVCs, multiple ICD shocks Multiple ICD shocks, [facility] Single-chamber fortify Assura VR model #1357-40 Q ICD Pacing threshold 0.5 V at point 5 ms, bipolar R waves 12 mV Pace impedance 440 ohms High-voltage impedance 43 ohms On 13 February at 10 PM patient had an episode of very fast VT, detected in the VF zone 1 round of ATP failed 36 J defibrillation was successful The onset appeared to be pause dependent An episode of ventricular fibrillation on 10 February Once again antitachycardia pacing failed while 36 J shock was successful High-voltage impedance 53 ohms Charge time 9 seconds Once again this was a pause dependent onset Similar episode on 08 February for ventricular fibrillation was pause dependent, post PVC Plan IV followed by oral amiodarone for suppression Hold Corlanor I would recommend upgrade to a dual-chamber ICD with overdrive atrial pacing to minimize pause dependent VF
[2024-02-15] MEDS: SACUBITRIL/VALSARTAN 24 MG-26 MG TABLET PO SCH (21:21)
[2024-02-15] MEDS: ATORVASTATIN 40 MG TAB PO SCH (21:33)
[2024-02-15] MEDS: AMIODARONE 450 MG in DEXTROSE 5% IN WATER 250 ML IV SCH (22:17)
[2024-02-16 07:51] LABS: Basophils % (A) 0 %; Eosinophils # (A) 0.1 k/uL (0-0.7); Eosinophils % (A) 1 %; HGB 15.4 gm/dL (13.0-17.5); Hypochromasia Slight; Lymphocytes # (A) 0.9 k/uL (1.0-4.8); Lymphocytes % (A) 12 %; MCH 30.1 pg (25.0-35.0); MCHC 31.5 g/dL (31.0-37.0); MCV 95.7 fL (80.0-100.0); Mean Platelet Volume 9.5; Monocytes # (A) 0.4 k/uL (0-1.0); Monocytes % (A) 5 %; Neutrophils # (A) 6.1 k/uL (1.3-7.7); Neutrophils % (A) 81 %; Platelet Count 145 k/uL (150-450); RBC 5.13 m/uL (4.30-5.90); RDW 14.6 % (11.5-15.5); WBC 7.6 k/uL (3.8-10.6)
[2024-02-16 08:02] LABS: African American GFR (CKD) 27 (>60 ml/min/1.73 sqM); Anion Gap 12 mmol/L; Blood Urea Nitrogen 53 mg/dL (9-20); Calcium 9.1 mg/dL (8.4-10.2); Carbon Dioxide 20 mmol/L (22-30); Chloride 104 mmol/L (98-107); Glucose 121 mg/dL (74-99); Non-African American GFR(CKD) 23 (>60 ml/min/1.73 sqM); Potassium 3.9 mmol/L (3.5-5.1); Sodium 136 mmol/L (137-145)
[2024-02-16] MEDS: SPIRONOLACTONE 25 MG TAB PO SCH (08:54)
[2024-02-16] MEDS: FUROSEMIDE 20 MG TAB PO SCH (08:54)
[2024-02-16] MEDS: SODIUM BICARBONATE TAB 650 MG TAB PO SCH (08:54)
[2024-02-16] MEDS: DAPAGLIFLOZIN PROPANEDIOL 10 MG TABLET PO SCH (08:55)
[2024-02-16 11:51] LABS: Glucose,Whole Blood 133 mg/dL (70-110)
[2024-02-16] MEDS: METOPROLOL SUCCINATE (ER) 50 MG TAB.ER.24H PO SCH (12:00)
[2024-02-16] MEDS: AMIODARONE 200 MG TAB PO SCH (13:14)
[2024-02-16 20:21] LABS: Glucose,Whole Blood 199 mg/dL (70-110)
--- NOTE | 2024-02-17 03:10 | PN ---
PROGRESS NOTE SUBJECTIVE: A 73-year-old male patient, was admitted for evaluation and management of recurrent ventricular fibrillation. These appeared to be pause dependent. I discontinued ivabradine, but continued his other heart failure medications and added IV amiodarone for suppression. He has not had any further episodes of ICD shocks. His blood pressure is in the mid 90s. Pulse rate is now in the 70s, afebrile. Heart sounds are normal. Breath sounds are clear. No lower extremity edema. His labs today are as follows: Hemoglobin is normal. Platelet count 145,000. Troponins were borderline at 0.04 as expected with multiple ICD shocks in the setting of nonischemic cardiomyopathy and VF. His BUN is 53. His creatinine is 2.64. His IV amiodarone infusion has been completed and we will start him on oral amiodarone today 400 mg twice daily, 1 dose now. We will continue spironolactone, Entresto, metoprolol succinate 50 mg at noontime, Farxiga, and atorvastatin. He will be monitored through the weekend. MMJAYYL / IJN: [id number] /
[2024-02-17 05:15] LABS: Glucose,Whole Blood 126 mg/dL (70-110)
--- NOTE | 2024-02-17 13:26 | P.PN ---
Subjective Progress Note Date: 02/17/24 the patient is a [id number] was sent to the emergency room for having episodes of ventricular fibrillation and ICD firing. The patient was started on oral amiodarone and his coronary was discontinued as he has pause dependent polymorphic ventricular fibrillation. Patient interviewed and examined resting comfortably in bed. He states he did well overnight. No chest pain or difficulty breathing. GENERAL: Well-appearing, well-nourished and in no acute distress. NECK: Supple without JVD or thyromegaly. LUNGS: Breath sounds clear to auscultation bilaterally. Respiration equal and unlabored. No wheezes, rales or rhonchi. HEART: Regular rate and rhythm without murmurs, rubs or gallops. S1 and S2 heard. EXTREMITIES: Normal range of motion, no edema. No clubbing or cyanosis. Peripheral pulses intact and strong. TELEMETRY: sinus rhythm. 2 runs of nonsustained ventricular tachycardia overnight IMPRESSION: Recurrent pulse dependent VF Nonischemic cardiomyopathy, status post AICD Hypertension Hyperlipidemia Frequent PVCs Chronic kidney disease Mitral regurgitation PLAN: Plan for STACIE Monday to assess for progression of valvular disease Continue oral amiodarone Consideration for atrial lead placement with pause dependent VT Further recommendations based on course I am dictating on behalf of Dr Brant Bañuelos's history/physical and assessment/plan. Objective - Vital Signs Vital signs: Vital Signs Temp 97.8 F 02/17/24 09:03 Pulse 66 02/17/24 11:48 Resp 18 02/17/24 11:48 BP 103/63 02/17/24 11:48 Pulse Ox 97 02/17/24 11:48 FiO2 Intake & Output 02/16/24 02/17/24 02/17/24 18:59 06:59 18:59 Intake Total 1008.337 10 Balance 1008.337 10 Weight 103.873 kg 108.7 kg Intake: IV 10 Invasive Line 1 10 Intake, IV Titration 228.337 Amount Amiodarone 450 mg In 228.337 Dextrose 5% in Water 250 ml @ 0.5 MG/MIN 16.667 mls/hr IV .Q15H ORIN Rx#: [id number] Oral 780 Other: Voiding Method Toilet Toilet Toilet # Voids 1 2 - Labs CBC & Chem 7: 02/16/24 06:13 02/16/24 06:13 Labs: Abnormal Lab Results - Last 24 Hours (Table) 02/16/24 02/17/24 Range/Units 20:06 05:13 POC Glucose (mg/dL) 199 H 126 H (70-110) mg/dL
[2024-02-18 10:49] LABS: ALT 33 U/L (4-49); African American GFR (CKD) 25 (>60 ml/min/1.73 sqM); Albumin 3.6 g/dL (3.5-5.0); Anion Gap 14 mmol/L; Blood Urea Nitrogen 69 mg/dL (9-20); Carbon Dioxide 21 mmol/L (22-30); Chloride 102 mmol/L (98-107); Glucose 176 mg/dL (74-99); Non-African American GFR(CKD) 22 (>60 ml/min/1.73 sqM); Sodium 137 mmol/L (137-145); Total Bilirubin 1.3 mg/dL (0.2-1.3); Total Protein 6.2 g/dL (6.3-8.2)
[2024-02-18 10:56] LABS: AST 38 U/L (17-59); Alkaline Phosphatase 81 U/L (38-126); Potassium 4.5 mmol/L (3.5-5.1)
--- NOTE | 2024-02-18 11:15 | P.PN ---
Subjective Progress Note Date: 02/18/24 The patient is a [id number] was sent to the emergency room for having episodes of ventricular fibrillation and ICD firing. The patient was started on oral amiodarone and his coronary was discontinued as he has pause dependent polymorphic ventricular fibrillation. Patient interviewed and examined sitting up in the recliner chair. He states he slept well and actually feels decent today. He states he has not had any difficulty breathing over the last 4 days since his hospital admission. He also states his sinus congestion has resolved GENERAL: Well-appearing, well-nourished and in no acute distress. NECK: Supple without JVD or thyromegaly. LUNGS: Breath sounds clear to auscultation bilaterally. Respiration equal and unlabored. No wheezes, rales or rhonchi. HEART: Regular rate and rhythm. Very soft systolic murmur. No rubs or gallops. S1 and S2 heard. EXTREMITIES: Normal range of motion, no edema. No clubbing or cyanosis. Peripheral pulses intact and strong. TELEMETRY: Sinus mechanism. Several very brief runs of nonsustained ventricular tachycardia IMPRESSION: Recurrent pulse dependent VF Nonischemic cardiomyopathy, status post AICD Hypertension Hyperlipidemia Frequent PVCs Chronic kidney disease, worsening Mitral regurgitation PLAN: nothing by mouth after midnight in preparation for STACIE tomorrow discontinue Entresto due to rising creatinine Start low dose hydralazine for hypertension Consideration for atrial lead placement with pause dependent VT patient to be discharged after STACIE for outpatient follow-up with Dr. Bañuelos I am dictating on behalf of Dr Brant Bañuelos's history/physical and assessment/plan. Objective - Vital Signs Vital signs: Vital Signs Temp 97.7 F 02/18/24 08:50 Pulse 70 02/18/24 08:50 Resp 18 02/18/24 08:50 BP 101/71 02/18/24 08:50 Pulse Ox 94 L 02/18/24 08:50 FiO2 Intake & Output 02/17/24 02/18/24 02/18/24 18:59 06:59 18:59 Intake Total 472 10 Balance 472 10 Weight 107.8 kg Intake: IV 10 10 Invasive Line 1 10 10 Oral 462 Other: Voiding Method Toilet Toilet Toilet # Voids 2 1 - Labs CBC & Chem 7: 02/16/24 06:13 02/18/24 10:10 Labs: Abnormal Lab Results - Last 24 Hours (Table) 02/18/24 Range/Units 10:10 Carbon Dioxide 21 L (22-30) mmol/L BUN 69 H (9-20) mg/dL Creatinine 2.79 H (0.66-1.25) mg/dL Glucose 176 H (74-99) mg/dL Total Protein 6.2 L (6.3-8.2) g/dL
[2024-02-18] MEDS: hydrALAZINE HCL 25 MG TAB PO SCH (21:59)
--- NOTE | 2024-02-19 08:12 | P.PN ---
Subjective Progress Note Date: 02/19/24 The patient is a 73-year-old gentleman who was admitted to the hospital with AICD discharge. The patient is known to have cardiomyopathy as well as valvular heart disease. Beside that he does have multiple comorbid conditions including chronic kidney disease. He was on Entresto which was stopped because of marginally low blood pressure February 19, 2024 The patient was seen and evaluated this morning he is asymptomatic and hemodynamically stable. The plan is to pursue transesophageal echocardiogram to assess the mitral valve. The examination is remarkable for stable vital signs with regular rate and rhythm and clear breathing sounds bilaterally and no edema was noted Assessment ICD discharge Valvular heart disease concerning about mitral regurgitation Chronic kidney disease Multiple comorbid conditions Plan Continue the current medical regimen Proceed with STACIE Follow-up with the patient Objective - Vital Signs Vital signs: Vital Signs Temp 97.4 F L 02/19/24 04:00 Pulse 70 02/19/24 04:00 Resp 16 02/19/24 04:00 BP 103/70 02/19/24 04:00 Pulse Ox 95 02/19/24 04:00 FiO2 Intake & Output 02/18/24 02/19/24 02/19/24 18:59 06:59 18:59 Intake Total 550 Balance 550 Weight 108.4 kg Intake: IV 10 Invasive Line 1 10 Oral 540 Other: Voiding Method Toilet Toilet # Voids 2 1 - Labs CBC & Chem 7: 02/16/24 06:13 02/18/24 10:10 Labs: Abnormal Lab Results - Last 24 Hours (Table) 02/18/24 Range/Units 10:10 Carbon Dioxide 21 L (22-30) mmol/L BUN 69 H (9-20) mg/dL Creatinine 2.79 H (0.66-1.25) mg/dL Glucose 176 H (74-99) mg/dL Total Protein 6.2 L (6.3-8.2) g/dL
[2024-02-19] MEDS: BENZOCAINE SPRAY 1 CAN TOPICAL ONE (12:11)
[2024-02-19] MEDS: fentaNYL (PF) 50 MCG/ML 2 ML AMP IVP ONE (12:11)
[2024-02-19] MEDS: MIDAZOLAM 2 MG/2 ML VIAL IVP ONE (12:11)
[2024-02-19] MEDS: SODIUM CHLORIDE 0.9% 500 ML 500 ML IV ONE (12:30)
--- NOTE | 2024-02-19 12:57 | P.TEE ---
Date of Procedure: 02/19/24 Description of Procedure(s): Procedure performed: 1. Transesophageal Echocardiogram with color flow doppler, pulsed wave doppler and continuous wave doppler, (CPT 20542, +43431, +[id number]) 2. Moderate conscious sedation. Sedation time [20] mins. (CPT 12707) Indications: Evaluation of mitral valvular regurgitation. Severe MR by TTE. Consent: I have discussed the risks, benefits and alternative therapies for the above-mentioned procedure. The patient has indicated understanding and acceptance of the risks of the procedure. Signed consent was obtained and was placed in the paper chart. Procedural Steps: Timeout was performed in usual fashion. Patient's heart rate, blood pressure, oxygen saturation and ECG were monitored. Benzocaine was sprayed liberally in the back of the throat. Bite block was placed between the jaw. 3 mg of Versed and 50 mcg of Fentanyl were administered intravenously. After achieving appropriate moderate conscious sedation, STACIE probe was advanced without difficulty and without any immediate complications to the esophagus. STACIE study was performed with color flow doppler, pulsed wave doppler and continuous wave doppler. The probe was then removed. Patient tolerated the procedure well. Patient was transferred to the post procedure area in stable and satisfactory condition. Throughout the procedure patient's heart rate, blood pressure, oxygen saturation and ECG were monitored. Total sedation time [20] mins. Complications: none FINDINGS Left Atrium: Severe LA dilatation. No evidence of mass or thrombus seen. Preserved forward flow in Pulmonary vein with minimal systolic reversal. Left Atrial Appendage: No evidence of thrombus or mass seen in LESVIA. Dilated Left atrial appendage Inter atrial septum: Intact inter-atrial septum with no evidence of atrial septal defect or patent foramen ovale on color doppler. Left Ventricle: Moderately increased LV cavity size. Severely reduced global LV systolic function. LVEF estimated at 20-25% Right Atrium: Severe RA dilatation. Systolic bulging of IA septum from right to left seen suggestive of severe Tricuspid regurgitation. ICD wire seen in RA with no thrombus or vegetation. Right Ventricle: Mildly dilated RV with globally reduced systolic function. ICD wire noticed in RV with no thrombus or vegetation. Aortic Valve: Trileaflet, with mild calcific sclerosis. No significant stenosis or regurgitation on color doppler assessment. Mitral Valve: Eccentric Posteriorly directed mitral valve regurgitation due to tethered posterior mitral leaflet due to dilated LV cavity. Pansystolic. Average PISA radius 0.65 cm, Aliasing velocity 38 cm/sec, MR VIT 180 cm, MR Vmax 449 cm/sec. EROA 0.2 cm2, Regurg Volume 36 ml/beat. Severe LA dilatation withy only minimal systolic flow reversal in pulmonic vein. Based on above data, MR is most likely moderate Pulmonic Valve: Not well visualized. Tricuspid Valve: Severe tricuspid regurgitation likely due to restricted closing of posterior tricupsid leaflet from ICD wire. RVSP estimated at 38 mmHg. Ascending aorta, Aortic root and Aortic arch: Normal size aortic root and ascending aorta. Descending aorta: Mild intimal thickening. Effusions: No pericardial effusion, Small pleural effusion noticed. CONCLUSION: Secondary Mitral regurgitation (eccentric, posteriorly directed) due to tethered posterior mitral leaflet from dilated LV cavity Severe tricuspid regurgitation Severe Biatrial dilatation Moderate LV cavity dilatation with severly reduced global LV systolic function Mildly dilated RV with reduced systolic function Small pleural effusion seen. Angel Garner MD, RPVI, FACC Thank you for allowing [facility] to participate in this patient's care. Feel free to reach out in case of any followup questions.
[2024-02-19] MEDS: fentaNYL (PF) 50 MCG/ML 2 ML AMP ONE (15:05)
[2024-02-19 16:13] VITALS: BP 99/69; PULSE 45; RESP 17; TEMP 97.4
--- NOTE | 2024-02-19 19:28 | P.DS ---
Providers Date of admission: 02/15/24 12:34 Attending physician: Brant Bañuelos Primary care physician: Joey [facility] Course: Patient is sitting comfortably in bed. Denies any chest discomfort dizziness lightheadedness or shortness of breath On examination pulse rate is in the 50s, blood pressure 106/69 102/71 mmHg respirations normal afebrile Systolic murmur over the precordium and apex Clear lungs No JVD Patient underwent a STACIE Biatrial enlargement, severe No left atrial appendage thrombus Moderate increase in LV cavity size with severely reduced global LV systolic function Cathode posterior mitral valve leaflet due to dilated LV cavity and systolic MR Moderate MR Severe tricuspid regurgitation due to restricted closing of the posterior tricuspid leaflet Yesterday we discontinued Entresto on account of slowly rising creatinine now at 2.79 He was admitted with multiple ICD shocks, appropriate, for VF detected by the ICD He was started on intravenous followed by oral amiodarone loading Since the VF episodes with pause dependent, Corlanor was held but metoprolol was continued, 50 mg XL daily at noon time Blood pressure has been low normal and therefore Entresto was held yesterday Today he underwent STACIE which shows predominantly secondary mitral regurgitation, moderate and severe tricuspid regurgitation Impression Mild CAD with calcified coronary arteries, elevated LVEDP in 2019 when he had severe cardiomyopathy Nonischemic cardiomyopathy with severe congestive heart failure Patient improved significantly after Corlanor was added to the combination of beta-blockers Entresto and spironolactone Recently frequent PVCs, PMVT and episodes of VF Episodes of VF preceded by a post PVC pause Amiodarone has suppressed ventricular ectopy for now STACIE shows severe tricuspid regurgitation, restricted tricuspid leaflet At least moderate mitral regurgitation with restricted leaflet However his renal function has been steadily worsening and it is quite likely that this may be at least partly related to mitral regurgitation resulting in cardiorenal syndrome In 2016 he had left-sided hydronephrosis with an obstructing calculus in the left ureteropelvic junction measuring 1.5 cm Nephrostomy tube placement for nephrolithotomy CT also showed diffuse hepatic steatosis, mild to moderate Chronic kidney disease with creatinines ranging from 1.6-1.8 up until 2022 In 2023 progressive worsening of renal function to 2.7 Plan Discharge home today Amiodarone 400 mg twice daily for 1 week and then 400 mg daily for suppression of EF Continue metoprolol Continue spironolactone Continue Lasix 20 mg p.o. daily Continue Farxiga Hold Corlanor 5 mg twice daily Hold Entresto 24/26 mg p.o. twice daily Consideration for mitral valve therapy, percutaneous Bilateral renal ultrasound will be considered Patient Condition at Discharge: Serious Plan - Discharge Summary Discharge Rx Participant: No New Discharge Prescriptions: New Amiodarone [Cordarone] 400 mg PO DAILY #90 tab Discontinued Sacubitril/Valsartan [Entresto 24 mg-26 mg Tablet] 1 tab PO BID Ivabradine HCl [Corlanor] 5 mg PO BID cefUROXime axetiL [Ceftin] 500 mg PO BID No Action allopurinoL [Zyloprim] 100 mg PO DAILY Spironolactone 25 mg PO DAILY Atorvastatin [Lipitor] 40 mg PO HS Sodium Bicarbonate Tab 650 mg PO DAILY Furosemide [Lasix] 20 mg PO DAILY Metoprolol Succinate (ER) [Toprol Xl] 50 mg PO HS Ergocalciferol [Vitamin D2 (1250 Mcg = 80293 Iu)] 1,250 mcg PO Q14D Omeprazole [PriLOSEC] 20 mg PO DAILY Dapagliflozin Propanediol [Farxiga] 10 mg PO DAILY Discharge Medication List allopurinoL [Zyloprim] 100 mg PO DAILY 04/29/19 [History] Furosemide [Lasix] 20 mg PO DAILY 12/03/20 [History] Metoprolol Succinate (ER) [Toprol Xl] 50 mg PO HS 12/03/20 [History] Spironolactone 25 mg PO DAILY 12/03/20 [History] Atorvastatin [Lipitor] 40 mg PO HS 05/05/22 [History] Ergocalciferol [Vitamin D2 (1250 Mcg = 31450 Iu)] 1,250 mcg PO Q14D 05/05/22 [History] Dapagliflozin Propanediol [Farxiga] 10 mg PO DAILY 02/15/24 [History] Omeprazole [PriLOSEC] 20 mg PO DAILY 02/15/24 [History] Sodium Bicarbonate Tab 650 mg PO DAILY 02/15/24 [History] Amiodarone [Cordarone] 400 mg PO DAILY #90 tab 02/19/24 [Rx] Follow up Appointment(s)/Referral(s): Brant Bañuelos MD [STAFF PHYSICIAN] - 02/26/24 10:00 am Joey Adkins DO [Primary Care Provider] - 1-2 days Activity/Diet/Wound Care/Special Instructions: Amiodarone 400 mg twice daily for 1 week 400 mg once daily thereafter Hold Corlanor Hold Entresto Continue all other medications Discharge Disposition: HOME SELF-CARE
== END 2024-02-19 17:08 | disposition home or self-care (01) | DRG 314 ==
LOC: EC 10:45 → 3SCARD 12:34
PROVIDERS: ADMIT Internal Medicine Clinical Cardiac Electrophysiology; ATTEND Internal Medicine Clinical Cardiac Electrophysiology
PROC: 5A2204Z Restoration of Cardiac Rhythm, Single (ICD-10-PCS; 2024-02-15)
PROC: B24BZZ4 Ultrasonography of Heart with Aorta, Transesophageal (ICD-10-PCS; principal; 2024-02-19 09:00)
DX: T82.897A Other specified complication of cardiac prosthetic devices, implants and grafts, initial encounter (principal); I49.01 Ventricular fibrillation; I13.0 Hypertensive heart and chronic kidney disease with heart failure and stage 1 through stage 4 chronic kidney disease, or unspecified chronic kidney disease; I42.8 Other cardiomyopathies; I47.20 Ventricular tachycardia, unspecified; I08.1 Rheumatic disorders of both mitral and tricuspid valves; E11.22 Type 2 diabetes mellitus with diabetic chronic kidney disease; E78.5 Hyperlipidemia, unspecified; I25.10 Atherosclerotic heart disease of native coronary artery without angina pectoris; I49.3 Ventricular premature depolarization; I50.9 Heart failure, unspecified; K76.0 Fatty (change of) liver, not elsewhere classified; N18.30 Chronic kidney disease, stage 3 unspecified; Z79.84 Long term (current) use of oral hypoglycemic drugs; Z79.899 Other long term (current) drug therapy; Z87.442 Personal history of urinary calculi; Z87.891 Personal history of nicotine dependence; Z95.810 Presence of automatic (implantable) cardiac defibrillator
CPT/HCPCS: 36415; 71045; 80048; 80053; 83735; 84443; 84484; 85025; 85610; 85730; 93005; 93312; 93320; 93325; 94760; 96365; 96366; 99285

== ENCOUNTER 2024-03-14 14:16 | Inpatient (IN) | payer MEDICARE, BC ==
[2024-03-14] MEDS ORDERED: FUROSEMIDE 10 MG/ML 4 ML VIAL ONE (15:45)
[2024-03-15] MEDS ORDERED: HEPARIN SODIUM,PORCINE 10,000 UNIT/ML 1 ML VIAL ONE (09:14)
[2024-03-15] MEDS ORDERED: SODIUM CHLORIDE 0.9% 500 ML BAG ONE (09:14)
[2024-03-15] MEDS ORDERED: LIDOCAINE 1% INJ 10MG/ML (30 ML VIAL-PF) ONE (09:14)
[2024-03-15] MEDS ORDERED: SODIUM CHLORIDE 0.9% 1,000 ML BAG ONE (09:14)
[2024-03-15] MEDS ORDERED: ATORVASTATIN 40 MG TAB ONE (12:50)
[2024-03-15] MEDS ORDERED: ENOXAPARIN 40 MG/0.4 ML SYRINGE SQ ONE (12:50)
[2024-03-15] MEDS ORDERED: SPIRONOLACTONE 25 MG TAB ONE (12:51)
[2024-03-15] MEDS ORDERED: allopurinoL 100 MG TAB ONE (12:51)
[2024-03-16] MEDS ORDERED: ENOXAPARIN 40 MG/0.4 ML SYRINGE SQ ONE (09:17)
[2024-03-16] MEDS ORDERED: allopurinoL 100 MG TAB ONE (09:18)
[2024-03-16] MEDS ORDERED: SPIRONOLACTONE 25 MG TAB ONE (09:18)
[2024-03-16] MEDS ORDERED: AMIODARONE 200 MG TAB ONE (09:19)
[2024-03-16] MEDS ORDERED: INSULIN ASPART (NovoLOG) 100 UNIT/ML VIAL SQ ONE (11:51)
[2024-03-16] MEDS ORDERED: ATORVASTATIN 40 MG TAB ONE (20:31)
[2024-03-16] MEDS ORDERED: DOBUTamine DRIP 500 MG/250 ML BAG IV ONE (23:59)
[2024-03-16] MEDS ORDERED: hydrALAZINE HCL 10 MG TAB ONE (23:59)
[2024-03-16] MEDS ORDERED: ISOSORBIDE DINITRATE 20 MG TAB ONE (23:59)
[2024-03-16] MEDS ORDERED: SODIUM CHLORIDE 0.9% 100 ML BAG IV ONE (23:59)
[2024-03-16] MEDS ORDERED: FUROSEMIDE 10 MG/ML 10 ML VIAL ONE (23:59)
[2024-03-17] MEDS ORDERED: ENOXAPARIN 40 MG/0.4 ML SYRINGE SQ ONE (07:56)
[2024-03-17] MEDS ORDERED: POTASSIUM CHLORIDE ER 20 MEQ TAB.ER PO ONE ×2 (07:56→23:59)
[2024-03-17] MEDS ORDERED: SPIRONOLACTONE 25 MG TAB ONE (07:56)
[2024-03-17] MEDS ORDERED: allopurinoL 100 MG TAB ONE (07:57)
[2024-03-17] MEDS ORDERED: AMIODARONE 200 MG TAB ONE (07:57)
[2024-03-17] MEDS ORDERED: MAGNESIUM SULFATE-D5W PMX 100 ML IVPB ONE (10:33)
[2024-03-17] MEDS ORDERED: INSULIN ASPART (NovoLOG) 100 UNIT/ML VIAL SQ ONE (20:43)
[2024-03-17] MEDS ORDERED: hydrALAZINE HCL 10 MG TAB ONE (23:59)
[2024-03-17] MEDS ORDERED: ATORVASTATIN 40 MG TAB ONE (23:59)
[2024-03-17] MEDS ORDERED: SODIUM CHLORIDE 0.9% 100 ML BAG ONE (23:59)
[2024-03-17] MEDS ORDERED: ISOSORBIDE DINITRATE 20 MG TAB ONE (23:59)
[2024-03-17] MEDS ORDERED: FUROSEMIDE 10 MG/ML 10 ML VIAL ONE (23:59)
[2024-03-17] MEDS ORDERED: DOBUTamine DRIP 500 MG/250 ML BAG IV ONE (23:59)
[2024-03-18] MEDS ORDERED: POTASSIUM CHLORIDE ER 20 MEQ TAB.ER PO ONE ×2 (06:51→10:07)
[2024-03-18] MEDS ORDERED: MAGNESIUM SULFATE-D5W PMX 100 ML IVPB ONE ×2 (07:09→10:10)
[2024-03-18] MEDS ORDERED: allopurinoL 100 MG TAB ONE (10:07)
[2024-03-18] MEDS ORDERED: ENOXAPARIN 40 MG/0.4 ML SYRINGE SQ ONE (10:07)
[2024-03-18] MEDS ORDERED: SPIRONOLACTONE 25 MG TAB ONE (10:07)
[2024-03-18] MEDS ORDERED: AMIODARONE 200 MG TAB ONE (10:08)
[2024-03-18] MEDS ORDERED: ATORVASTATIN 40 MG TAB ONE (20:17)
[2024-03-18] MEDS ORDERED: LACTULOSE 20 GM/30 ML CUP ONE (20:17)
[2024-03-18] MEDS ORDERED: SODIUM CHLORIDE 0.9% 100 ML BAG ONE (23:59)
[2024-03-18] MEDS ORDERED: hydrALAZINE HCL 20 MG/ML 1 ML VIAL ONE (23:59)
[2024-03-18] MEDS ORDERED: FUROSEMIDE 10 MG/ML 10 ML VIAL ONE (23:59)
[2024-03-18] MEDS ORDERED: ISOSORBIDE DINITRATE 20 MG TAB ONE (23:59)
[2024-03-19] MEDS ORDERED: FUROSEMIDE 10 MG/ML 4 ML VIAL ONE ×2 (21:12→23:59)
[2024-03-19] MEDS ORDERED: ATORVASTATIN 40 MG TAB ONE (21:12)
[2024-03-19] MEDS ORDERED: hydrALAZINE HCL 10 MG TAB ONE (21:12)
[2024-03-19] MEDS ORDERED: ISOSORBIDE DINITRATE 20 MG TAB ONE (23:59)
[2024-03-19] MEDS ORDERED: FUROSEMIDE 10 MG/ML 10 ML VIAL ONE (23:59)
[2024-03-19] MEDS ORDERED: SPIRONOLACTONE 25 MG TAB ONE (23:59)
[2024-03-19] MEDS ORDERED: INSULIN ASPART (NovoLOG) 100 UNIT/ML VIAL SQ ONE (23:59)
[2024-03-19] MEDS ORDERED: DOBUTamine DRIP 500 MG/250 ML BAG IV ONE (23:59)
[2024-03-19] MEDS ORDERED: SODIUM CHLORIDE 0.9% 100 ML BAG ONE (23:59)
[2024-03-19] MEDS ORDERED: allopurinoL 100 MG TAB ONE (23:59)
[2024-03-19] MEDS ORDERED: ENOXAPARIN 40 MG/0.4 ML SYRINGE SQ ONE (23:59)
[2024-03-19] MEDS ORDERED: AMIODARONE 200 MG TAB ONE (23:59)
[2024-03-20] MEDS ORDERED: FUROSEMIDE 10 MG/ML 4 ML VIAL ONE ×2 (06:58→21:25)
[2024-03-20] MEDS ORDERED: hydrALAZINE HCL 10 MG TAB ONE ×3 (06:58→21:25)
[2024-03-20] MEDS ORDERED: allopurinoL 100 MG TAB ONE (08:11)
[2024-03-20] MEDS ORDERED: SPIRONOLACTONE 25 MG TAB ONE (08:11)
[2024-03-20] MEDS ORDERED: AMIODARONE 200 MG TAB ONE ×2 (08:11→21:24)
[2024-03-20] MEDS ORDERED: ENOXAPARIN 40 MG/0.4 ML SYRINGE SQ ONE (08:12)
[2024-03-20] MEDS ORDERED: carvediloL 3.125 MG TAB ONE (21:25)
[2024-03-20] MEDS ORDERED: ATORVASTATIN 40 MG TAB ONE (21:25)
[2024-03-20] MEDS ORDERED: INSULIN ASPART (NovoLOG) 100 UNIT/ML VIAL SQ ONE (21:30)
[2024-03-20] MEDS ORDERED: ISOSORBIDE DINITRATE 20 MG TAB ONE (23:59)
[2024-03-21] MEDS ORDERED: hydrALAZINE HCL 10 MG TAB ONE (06:23)
[2024-03-21] MEDS ORDERED: FUROSEMIDE 10 MG/ML 4 ML VIAL ONE (09:29)
[2024-03-21] MEDS ORDERED: AMIODARONE 200 MG TAB ONE ×2 (09:29→21:39)
[2024-03-21] MEDS ORDERED: allopurinoL 100 MG TAB ONE (09:29)
[2024-03-21] MEDS ORDERED: carvediloL 3.125 MG TAB ONE ×2 (09:29→21:39)
[2024-03-21] MEDS ORDERED: ENOXAPARIN 40 MG/0.4 ML SYRINGE SQ ONE (09:29)
[2024-03-21] MEDS ORDERED: SPIRONOLACTONE 25 MG TAB ONE (09:29)
[2024-03-21] MEDS ORDERED: FUROSEMIDE 40 MG TAB ONE (15:50)
[2024-03-21] MEDS ORDERED: ATORVASTATIN 40 MG TAB ONE (21:39)
[2024-03-21] MEDS ORDERED: hydrALAZINE HCL 25 MG TAB ONE (21:39)
[2024-03-21] MEDS ORDERED: HEPARIN SODIUM,PORCINE 5,000 UNIT/ML 1 ML VIAL ONE (21:42)
[2024-03-21] MEDS ORDERED: ISOSORBIDE DINITRATE 20 MG TAB ONE (23:59)
[2024-03-22] MEDS ORDERED: HEPARIN SODIUM,PORCINE 5,000 UNIT/ML 1 ML VIAL ONE (05:34)
[2024-03-22] MEDS ORDERED: SPIRONOLACTONE 25 MG TAB ONE (08:40)
[2024-03-22] MEDS ORDERED: AMIODARONE 200 MG TAB ONE (08:40)
[2024-03-22] MEDS ORDERED: carvediloL 3.125 MG TAB ONE (08:41)
[2024-03-22] MEDS ORDERED: FUROSEMIDE 20 MG TAB ONE (08:41)
[2024-03-22] MEDS ORDERED: allopurinoL 100 MG TAB ONE (08:41)
[2024-03-22] MEDS ORDERED: ISOSORBIDE DINITRATE 20 MG TAB ONE (09:00)
--- NOTE | 2024-04-16 09:45 | XR ---
Patient Javier Garcia P ID [id number] 1950 Age 73 years Gender M Order # [id number] EXAMINATION TYPE: XR chest 1V DATE OF EXAM: 03/18/2024 COMPARISON: 02/15/2024 INDICATION: Difficulty in breathing TECHNIQUE: Single frontal view of the chest is obtained. FINDINGS: The heart size is enlarged. Pacemaker overlies left chest. PICC line enters on the right with the ti p in superior vena cava region The pulmonary vasculature is prominent. Right perihilar infiltrate is present. IMPRESSION: 1. Clinical correlation for right lower lobe pneumonia. Atypical pulmonary edema could be considered within the differential. 2. Clinical consideration for congestive heart failure
--- NOTE | 2024-04-16 15:45 | XR ---
Patient Javier Garcia ID [id number] Order # EXAMINATION TYPE: XR chest 1V DATE OF EXAM: 03/16/2024 COMPARISON: 03/14/2024 INDICATION: Pulmonary edema TECHNIQUE: Single frontal view of the chest is obtained. FINDINGS: The heart size is enlarged. The pulmonary vasculature is prominent. Diffuse increase in lung markings are present bilaterally. Pacemaker overlies left chest. Multiple EKG leads are present. IMPRESSION: 1. Worsening congestive heart failure.
--- NOTE | 2024-04-16 18:06 | US ---
EXAMINATION TYPE: US renals and bladder DATE OF EXAM: 03/15/2024 COMPARISON: NONE CLINICAL INDICATION: Acute kidney injury EXAM MEASUREMENTS: Right Kidney: 11.0 x 5.8 x 4.9 cm Left Kidney: 6.7 x 3.2 x 2.8 cm Right Kidney: There is a large cyst at the inferior pole right kidney measuring 8.8centimeters. Left Kidney: Left kidney appears somewhat atrophic with thinned cortex. Urinary bladder is visualized and appears unremarkable IMPRESSION: 1. Atrophic left kidney. 2. Cyst inferior pole right kidney
--- NOTE | 2024-04-17 07:39 | XR ---
Patient Javier Garcia ID [id number] Order # EXAMINATION TYPE: XR chest 2V DATE OF EXAM: 03/14/2024 COMPARISON: No comparison available on downtime PACS. INDICATION: Short of breath TECHNIQUE: Frontal and lateral views of the chest are obtained. FINDINGS: The heart size is enlarged. Pacemaker overlies the left chest. The pulmonary vasculature is prominent. Right lower lobe infiltrate is present. Correlate for atelectasis or pneumonia. Atypical pneumonia co uld be considered.. IMPRESSION: 1. Atelectasis or pneumonia or possibly atypical pulmonary edema right lower lobe. 2. Cardiomegaly with prominent pulmonary vascular markings. Consider CHF.
== END 2024-03-22 13:57 | disposition home or self-care (01) | DRG 280 ==
LOC: EC 14:16 → 3NCARDOBS 20:10
PROVIDERS: ADMIT Student in an Organized Health Care Education/Training Program; ATTEND Student in an Organized Health Care Education/Training Program
DX: I13.0 Hypertensive heart and chronic kidney disease with heart failure and stage 1 through stage 4 chronic kidney disease, or unspecified chronic kidney disease (principal); I50.23 Acute on chronic systolic (congestive) heart failure; I21.A1 Myocardial infarction type 2; N17.0 Acute kidney failure with tubular necrosis; R57.0 Cardiogenic shock; J96.01 Acute respiratory failure with hypoxia; N18.4 Chronic kidney disease, stage 4 (severe); E87.20 Acidosis, unspecified; E11.22 Type 2 diabetes mellitus with diabetic chronic kidney disease; I42.8 Other cardiomyopathies; N40.0 Benign prostatic hyperplasia without lower urinary tract symptoms; E87.6 Hypokalemia; K21.9 Gastro-esophageal reflux disease without esophagitis; E78.5 Hyperlipidemia, unspecified; I08.1 Rheumatic disorders of both mitral and tricuspid valves; I25.10 Atherosclerotic heart disease of native coronary artery without angina pectoris; M10.9 Gout, unspecified; Z95.810 Presence of automatic (implantable) cardiac defibrillator; Z79.899 Other long term (current) drug therapy
CPT/HCPCS: 71045; 71046; 76770; 93005; 93451; 96374; 99285

== ENCOUNTER 2024-05-07 12:37 | Day surgery (SDC) | payer MEDICARE, BC ==
[~2024-05-07 12:37] MED LIST changes: +HYDROmorphone 0.5 MG/0.5 ML SYRINGE IVP PRN; -LACTATED RINGERS 1,000 ML IV SCH; +MIDAZOLAM 2 MG/2 ML VIAL IV PRN; -SODIUM CHLORIDE 0.9% 1,000 ML IV SCH
[2024-05-07] MEDS: SODIUM CHLORIDE 0.9% 1,000 ML IV SCH ×2 (12:56→18:41)
[2024-05-07] MEDS: IV FLUID CONTINUATION 1,000 ML IV ONE (12:58)
[2024-05-07 12:59] LABS: Glucose,Whole Blood 114 mg/dL (70-110)
[2024-05-07] MEDS ORDERED: fentaNYL (PF) 50 MCG/ML 2 ML AMP ONE (14:59)
[2024-05-07] MEDS: LIDOCAINE 1% INJ 10MG/ML (20 ML MDV) SQ ONE (15:50)
[2024-05-07] MEDS: ROPIVACAINE 5 MG/ML 30 ML VIAL MISCELLANE ONE (15:52)
[2024-05-07] MEDS: ceFAZolin 1 GM in SODIUM CHLORIDE 0.9% IRRIG BTL 250 ML IRRIGATION PRN (15:53)
[2024-05-07] MEDS ORDERED: ACETAMINOPHEN TAB 325 MG TAB PO PRN (17:34)
--- NOTE | 2024-05-07 17:53 | P.EPPROC ---
- EP Procedure Note Electrophysiology Procedure Note: Diagnosis Cardiomyopathy, chronic, severe nonischemic with severe heart failure Sick sinus syndrome, sinus bradycardia Patient has a single-chamber ICD in situ Procedure: Upgrade to dual-chamber ICD with implantation of new atrial lead Result: Atrial lead implantation Explantation of single-chamber ICD generator Implantation of dual ICD generator New atrial lead: Difficult implantation of atrial lead on account of enlarged right atrium and possibly smooth/stretched right atrial wall. Numerous attempts were made and finally we were able to implant the lead closer to the roof with good current of injury and excellent thresholds and stability. Lateral positions anterolateral positions and septal positions were unstable in the right atrium. Final position was very stable Pacing threshold 1 V at 0.5 ms, R waves 1.6 mV and pace impedance 400 ohms RV ICD lead: Chronic, pacing threshold 0.5 V at 0.5 ms, R waves 11.5 mV and pacing impedance 410 ohms High-voltage impedance 66 ohms AV node Wenckebach block 110 ms Therefore the dual-chamber ICD was programmed to DDD R 50-100 bpm, VIP turned on Procedure details: Patient was brought to the EP lab in a fasting state. Written informed consent was obtained prior to the procedure. Options, pros and cons, benefits and risks and complications discussed with patient in detail prior to the procedure (shared decision making). Importance of continuing medical treatment emphasized. Alternatives discussed. Patient would like to proceed with upgrade to dual-chamber ICD implant. And implantation of new atrial lead Left upper extremity venogram performed. 15 mL IV dye injected in the left arm. Patent axillary/subclavian vein The left pectoral area was prepped and draped as a protocol. IV antibiotics administered 1% lidocaine was used for local anesthesia. A 4 cm incision was made parallel to the deltopectoral groove, about 1.5 cm medial to it. The incision was carried down to the level of the pectoralis muscle and the subfascial pocket was made. Hemostasis was assured. The axillary vein access was obtained. Appropriately sized into to see sheath were placed. Atrial lead placed in the right atrial appendage and tested for threshold, sensing, impedance, and tested with high output pacing. Phrenic nerve stimulation Lead secured to the underlying transverse muscle after removing sheaths . Pocket irrigated with antibiotic solution Old single-chamber ICD explanted. Pocket irrigated with antibiotic solution. Leads reinterrogated. Excellent thresholds and sensing and impedances New dual-chamber ICD implanted and secured to the underlying pectoralis muscle. Antibiotic pouch placed Programming: MADIT RIT, DDDR 50-100 bpm Dual ICD interrogated and programmed. Appropriate pacing parameters, antitachycardia therapies with antitachycardia pacing cardioversion defibrillations programmed. Patient tolerated the procedure well without any acute complications. See scanned device report in EMR for lead details This is a long procedure. Atrial lead was not stable in multiple different loca tions. Finally stable position was achieved and the roof of the right atrium There was another location where the lead was secured more anteroseptally but the thresholds were very high and this position was not excepted. The lead was unscrewed. A new lead was implanted. Transfer tech
[2024-05-07] MEDS: LACTATED RINGERS 1,000 ML IV SCH (18:41)
[2024-05-07] MEDS: VALSARTAN PO SCH (21:33)
[2024-05-07] MEDS: SACUBITRIL PO SCH (21:33)
[2024-05-07] MEDS: ATORVASTATIN 40 MG TAB PO SCH (21:54)
[2024-05-07] MEDS: FUROSEMIDE 40 MG TAB PO SCH (21:54)
[2024-05-07] MEDS: carvediloL 3.125 MG TAB PO SCH (21:54)
[2024-05-07] MEDS: ISOSORBIDE MONONITRATE ER 60 MG TAB.ER.24H PO SCH (21:55)
[2024-05-07] MEDS: hydrALAZINE HCL 10 MG TAB PO SCH (22:03)
[2024-05-08] MEDS: ACETAMINOPHEN IV (For NPO) 1,000 MG in EMPTY BAG 1 BAG IVPB ONE (02:25)
[2024-05-08 06:26] LABS: Anisocytosis Slight; Basophils % (A) 0 %; Eosinophils # (A) 0.1 k/uL (0-0.7); Eosinophils % (A) 2 %; HGB 11.8 gm/dL (13.0-17.5); Hypochromasia Slight; Lymphocytes # (A) 0.6 k/uL (1.0-4.8); Lymphocytes % (A) 10 %; MCH 31.3 pg (25.0-35.0); MCHC 31.8 g/dL (31.0-37.0); MCV 98.4 fL (80.0-100.0); Macrocytosis Slight; Mean Platelet Volume 7.7; Monocytes # (A) 0.3 k/uL (0-1.0); Monocytes % (A) 5 %; Neutrophils # (A) 5.2 k/uL (1.3-7.7); Neutrophils % (A) 82 %; Platelet Count 186 k/uL (150-450); RBC 3.76 m/uL (4.30-5.90); RDW 17.3 % (11.5-15.5); WBC 6.3 k/uL (3.8-10.6)
[2024-05-08] MEDS: allopurinoL 100 MG TAB PO SCH (08:09)
[2024-05-08] MEDS: SPIRONOLACTONE 25 MG TAB PO SCH (08:10)
[2024-05-08] MEDS: AMIODARONE 100 MG TAB PO SCH (08:10)
[2024-05-08] MEDS: FUROSEMIDE 20 MG TAB PO SCH (08:10)
[2024-05-08 08:19] VITALS: BP 103/68; PULSE 80; RESP 16; TEMP 97.4
--- NOTE | 2024-05-08 08:29 | XR ---
EXAMINATION TYPE: XR chest 2V DATE OF EXAM: 05/08/2024 HISTORY: Shortness of breath. COMPARISON: 03/18/2024 TECHNIQUE: Single view of the chest is submitted. FINDINGS: Demonstrated are scattered senescent parenchymal change. Dual-lead pacer is in place with distal elaine ds overlying the right atrium and right ventricle respectively. No evidence for pneumothorax. There is no evidence for focal infiltrate. The heart is stable. Hilar and mediastinal structures are within normal limits. Degenerative changes are seen of the dorsal spine. IMPRESSION: 1. Chronic changes without evidence for acute pulmonary disease. [facility], , 05/08/2024 8:27 AM
[2024-05-08 11:09] LABS: BUN/Creat Ratio 20.48 Ratio (12.00-20.00); Calcium 8.6 mg/dL (8.7-10.3); Carbon Dioxide 22.4 mmol/L (21.6-31.8); Chloride 101 mmol/L (96-109); Glucose 115 mg/dL (70-110); Potassium 3.9 mmol/L (3.5-5.5); Sodium 137 mmol/L (135-145)
--- NOTE | 2024-05-09 08:11 | P.DS ---
Providers Attending physician: Brant Bañuelos Primary care physician: [facility] Course: Patient is doing well. No dizziness lightheadedness no chest pain He did well overnight Very mild tenderness over the ICD site No hematoma swelling His blood pressure ranges from 100-103 mmHg systolic Pulse rate normal in the 50s and 60s Heart sounds S1-S2 normal no S3 gallop no murmurs Lungs are clear Chest x-ray shows that the atrial lead is in stable position Device was interrogated Fresh atrial lead: Atrial pacing threshold 0.75 V at 0.5 ms, P waves 2.2 mV and pacing impedance 380 ohms Chronic ICD lead thresholds 0.75 V at 0.5 ms, R waves 11 mV and pacing impedance 380 ohms High-voltage impedance 48 ohms Programming DDD 50 with VIP mode turned on Impression Severe nonischemic cardiomyopathy Severe heart failure class III Sinus bradycardia 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, recurrent, requiring ICD shocks CKD, creatinine around 2.0-2.2, combination of postrenal obstructive disease, unilateral as well as prerenal/cardiorenal syndrome with reduced forward flow Plan Increase the dose of carvedilol to 3.125 mg 3 times a day and if the patient can tolerate this dose then we will increase it to 6.25 mg twice daily Hydralazine 10 mg 3 times a day Continue low-dose Entresto Continue spironolactone Patient Condition at Discharge: Good Plan - Discharge Summary Discharge Rx Participant: No New Discharge Prescriptions: New RX: hydrALAZINE HCL [Apresoline] 10 mg PO TID #270 tablet RX: carvediloL [Coreg] 3.125 mg PO TID #270 tab Discontinued hydrALAZINE HCL [Apresoline] 10 mg PO BID carvediloL [Coreg] 3.125 mg PO BID No Action RX: allopurinoL [Zyloprim] 100 mg PO DAILY RX: Spironolactone 25 mg PO DAILY Atorvastatin [Lipitor] 40 mg PO HS Ivabradine HCl [Corlanor] 5 mg PO BID Isosorbide Mononitrate ER [Imdur] 60 mg PO BID Sacubitril/Valsartan [Entresto 24 mg-26 mg Tablet] 15 - 16 mg PO BID Furosemide [Lasix] 60 mg PO DAILY Ergocalciferol [Vitamin D2 (1250 Mcg = 02072 Iu)] 1,250 mcg PO Q14D Ferrous Sulfate [Feosol] 325 mg PO DAILY Furosemide [Lasix] 40 mg PO HS RX: Amiodarone [Cordarone] 100 mg PO DAILY Discharge Medication List RX: allopurinoL [Zyloprim] 100 mg PO DAILY 04/29/19 [History] Furosemide [Lasix] 60 mg PO DAILY 12/03/20 [History] RX: Spironolactone 25 mg PO DAILY 12/03/20 [History] Atorvastatin [Lipitor] 40 mg PO HS 05/05/22 [History] Ergocalciferol [Vitamin D2 (1250 Mcg = 28639 Iu)] 1,250 mcg PO Q14D 05/05/22 [History] Ferrous Sulfate [Feosol] 325 mg PO DAILY 05/02/24 [History] Furosemide [Lasix] 40 mg PO HS 05/02/24 [History] Isosorbide Mononitrate ER [Imdur] 60 mg PO BID 05/02/24 [History] Ivabradine HCl [Corlanor] 5 mg PO BID 05/02/24 [History] RX: Amiodarone [Cordarone] 100 mg PO DAILY 05/02/24 [History] Sacubitril/Valsartan [Entresto 24 mg-26 mg Tablet] 15 - 16 mg PO BID 05/02/24 [History] RX: carvediloL [Coreg] 3.125 mg PO TID #270 tab 05/07/24 [Rx] RX: hydrALAZINE HCL [Apresoline] 10 mg PO TID #270 tablet 05/07/24 [Rx] Follow up Appointment(s)/Referral(s): Brant Bañuelos MD [STAFF PHYSICIAN] - 05/14/24 1:30 pm (Appointment is at the [facility] located in [facility]'s Main Office located on [address]) Patient Instructions/Handouts: Moderate Sedation (DC), Implantable Cardioverter Defibrillator (DC), Pacemaker (DC) Activity/Diet/Wound Care/Special Instructions: PATIENT EDUCATION MATERIAL Instructions following a heart rhythm device implant. 1. Keep dressing DRY for 5 DAYS. You may cover the area with Saran or Cling Wrap, prior to a shower. 2. The dressing will be removed in the [facility] at [facility]. Absorbable sutures were used to close the wound. 3. Avoid raising the left arm above the shoulder level. 4 week restriction 4. Avoid arm movements, like backscratching, rubbing the head, or pulling on a cord. 4 weeks restriction 5. Gentle range of motion movements of the shoulder, closest to the incision should be performed to avoid a frozen shoulder. (Pendulum exercises of the shoulder) 6. The opposite arm may be used freely. 7. Avoid driving for 7 days. 8. Avoid activities such as golfing, swimming, weed whacking, lifting more than 10 pounds weight, bowling, gymnastics and weight training/lifting. (6 weeks restriction) 9. Activities such as wood chopping with an axe, pull-ups in the gymnasium, power lifting, arc-welding, being close to home induction cooktops will always be a problem. 10. Arm sling is only a reminder not to raise the arm above the head. You do not need to keep the arm completely immobilized. Your free to move the arm and use it and for normal activities. In case of any problems, please call [facility], [place], @ [phone], Attention: Device Clinic Device clinic follow-up in 5 days Follow-up with primary residential director in 2-3 months Carvedilol dose is being increased to 3.125 mg 3 times a day Hydralazine dose is being increased to 10 mg 3 times a day Discharge Disposition: HOME SELF-CARE
== END 2024-05-08 11:31 | disposition home or self-care (01) ==
LOC: CATHEP 12:37 → 6NMEDSUR 17:23 → CATHEP 05-08 11:31
PROVIDERS: ATTEND Internal Medicine Clinical Cardiac Electrophysiology
DX: T82.858A Stenosis of other vascular prosthetic devices, implants and grafts, initial encounter
CPT/HCPCS: 33241; 33249; 71046; 80048; 84443; 85025; 93005